=== PATIENT | male | born 1965 | race Caucasian/White ===

== ENCOUNTER 2016-09-13 11:53 | Inpatient (IN) | payer OTHER ==
[2016-09-13 14:07] VITALS: BMI 34.3
--- NOTE | 2016-09-13 17:49 | HP ---
COWS - Scale Resting Pulse: 0= [place] 80 or Below Sweatin= Chills/Flushing Restless Observation: 3= Extraneous Movement Pupil Size: 0= Normal to Room Light Bone or Joint Aches: 2= Severe Diffuse Aches Runny Nose/ Eye Tearin= Nasal Congestion GI Upset > 30mins: 2= Nausea/Diarrhea Tremor Observation: 2= Slight Tremor Visible Yawning Observation: 1= 1-2x During Session Anxiety or Irritability: 2=Irritable/Anxious Goose Flesh Skin: 3=Piloerection COWS Score: 17 Admission ROS S - [facility] Chief Complaint: withdrawal sx Allergies/Adverse Reactions: Allergies Allergy/AdvReac Type Severity Reaction Status Date / Time No Known Allergies Allergy Verified 09/13/16 15:33 History of Present Illness: 51 years old male with long history of opiate nicotine dependence, has hypertension hepatitis c constipation denies mental illness, longest sobriety 5 years is admitted to detox Exam Limitations: No Limitations - Ebola screening Have you traveled outside of the country in the last 21 days: No Have you had contact with anyone from an Ebola affected area: No Have you been sick,other than usual withdrawal symptoms: No Do you have a fever: No - Review of Systems Constitutional: Chills, Changes in sleep, Weight Stable EENT: reports: No Symptoms Reported Respiratory: reports: No Symptoms reported Cardiac: reports: No Symptoms Reported GI: reports: Constipated, Nausea, Poor Fluid Intake, Abdominal cramping : reports: No Symptoms Reported Musculoskeletal: reports: Back Pain, Joint Pain, Muscle Pain, Neck Pain Integumentary: reports: No Symptoms Reported Neuro: reports: Tremors Endocrine: reports: No Symptoms Reported Hematology: reports: No Symptoms Reported Psychiatric: reports: Judgement Intact, Mood/Affect Appropiate, Orientated x3 Other Systems: Reviewed and Negative Patient History - Patient Medical History Hx Anemia: No Hx Asthma: No Hx Chronic Obstructive Pulmonary Disease (COPD): No Hx Cancer: No Hx Cardiac Disorders: No Hx Congestive Heart Failure: No Hx Hypertension: Yes Hx Hypercholesterolemia: No Hx Pacemaker: No HX Cerebrovascular Accident: No Hx Seizures: No Hx Dementia: No Hx Diabetes: No Hx Gastrointestinal Disorders: No Hx Liver Disease: No Hx Genitourinary Disorders: No Hx Sexually Transmitted Disorders: No Hx Renal Disease (ESRD): No Hx Thyroid Disease: No Hx Human Immunodeficiency Virus (HIV): No Hx Hepatitis C: Yes Hx Depression: No Hx Suicide Attempt: No Hx Bipolar Disorder: No Hx Schizophrenia: No - Patient Surgical History Past Surgical History: Yes Hx Neurologic Surgery: No Hx Cataract Extraction: No Hx Cardiac Surgery: No Hx Lung Surgery: No Hx Breast Surgery: No Hx Breast Biopsy: No Hx Abdominal Surgery: No Hx Appendectomy: No Hx Cholecystectomy: No Hx Genitourinary Surgery: No Hx Orthopedic Surgery: Yes (left hip/right arm 1984) Anesthesia Reaction: No - PPD History Previous Implant?: Yes Documented Results: Negative w/proof Implanted On Prior R Admission?: Yes Date: 07/15/16 PPD to be Administered?: No - Smoking Cessation Smoking history: Current every day smoker Have you smoked in the past 12 months: Yes Aproximately how many cigarettes per day: 5 Cigars Per Day: 0 Hx Chewing Tobacco Use: No Initiated information on smoking cessation: Yes 'Breaking Loose' booklet given: 09/13/16 - Substance & Tx. History Hx Alcohol Use: No Hx Substance Use: Yes Substance Use Type: Cocaine, Marijuana, Opiates Hx Substance Use Treatment: Yes - Substances Abused Cocaine Route: Inhalation Frequency: 1-2 times per week Amount used: $40 Age of first use: 19 Date of Last Use: 09/13/16 Heroin Route: Inhalation Frequency: Daily Amount used: $90 Age of first use: 25 Date of Last Use: 09/13/16 none Amount used: 1/2 pint Vodka Age of first use: 9 Date of Last Use: 09/13/16 Alcohol Route: Inhalation Amount used: 1/2 pint Vodka Age of first use: 9 Date of Last Use: 09/13/16 Family Disease History - Family Disease History Family Disease History: Diabetes: Mother (), CA: Father (), Other: Father Admission Physical Exam BHS - Vital Signs Vital Signs: Vital Signs - 24 hr 09/13/16 14:06 Temperature 97.5 F L Pulse Rate 72 Respiratory 18 Rate Blood Pressure 139/85 - Physical General Appearance: Yes: Appropriately Dressed, Mild Distress, Tremorous, Irritable, Sweating, Anxious HEENTM: Yes: Hearing grossly Normal, Normal ENT Inspection, Normocephalic, Normal Voice Respiratory: Yes: Chest Non-Tender, Lungs Clear, Normal Breath Sounds, No Respiratory Distress, No Accessory Muscle Use Neck: Yes: Supple, Trachea in good position Breast: Yes: Breasts Symetrical Cardiology: Yes: Regular Rhythm, Regular Rate, S1, S2 Abdominal: Yes: Non Tender, Soft Genitourinary: Yes: Within Normal Limits Back: Yes: Normal Inspection Musculoskeletal: Yes: full range of Motion, Gait Steady, Back pain, Muscle Pain Extremities: Yes: Normal Range of Motion, Non-Tender, Tremors Neurological: Yes: Fully Oriented, Alert, Motor Strength 5/5, Normal Mood/Affect , Normal Response Integumentary: Yes: Warm Lymphatic: Yes: Within Normal Limits - Diagnostic (1) Nicotine dependence Current Visit: Yes Status: Acute Qualifiers: Nicotine product type: cigarettes Substance use status: uncomplicated Qualified Code(s): F17.210 - Nicotine dependence, cigarettes, uncomplicated (2) Opioid dependence with withdrawal Current Visit: Yes Status: Acute (3) Hepatitis C Current Visit: Yes Status: Chronic Qualifiers: Viral hepatitis chronicity: chronic Hepatic coma status: without hepatic coma Qualified Code(s): B18.2 - Chronic viral hepatitis C (4) Hypertension Current Visit: Yes Status: Acute Qualifiers: Hypertension type: essential hypertension Qualified Code(s): I10 - Essential (primary) hypertension (5) Constipation Current Visit: Yes Status: Acute Qualifiers: Constipation type: slow transit constipation Qualified Code(s): K59.01 - Slow transit constipation (6) Fracture subluxation of perilunate joint of right wrist Current Visit: Yes Status: Resolved (7) S/p left hip fracture Current Visit: Yes Status: Resolved Cleared for Admission [facility] - Detox or Rehab [facility] Level of Care: Medically Managed Detox Regimen/Protocol: Methadone [facility] Breath Alcohol Content Breath Alcohol Content: 0 Urine Drug Screen - Results Drug Screen Negative: No Urine Drug Screen Results: THC-Marijuana, AGUSTIN-Cocaine, OPI-Opiates, BZO- Benzodiazepines, TCA-Tricyclic Antidepress, OXY-Oxycodone
[2016-09-13] MEDS ORDERED: MENTHOL/PHENOL 1 EACH UD MM PRN (17:51)
[2016-09-13] MEDS ORDERED: MAGNESIUM CITRATE 300 ML BOTTLE PO PRN (17:51)
[2016-09-13] MEDS ORDERED: LOPERAMIDE HCL 2 MG CAPSULE PO PRN (17:51)
[2016-09-13] MEDS ORDERED: ACETAMINOPHEN 325 MG TABLET (FP) PO PRN (17:51)
[2016-09-13] MEDS ORDERED: MAG HYDROX/AL HYDROX/SIMETH 30 ML UNIT-DOSE CUP PO PRN (17:51)
[2016-09-13] MEDS ORDERED: guaiFENesin/D-METHORPHAN HB 10 ML UNIT-DOSE CUPS PO PRN (17:51)
[2016-09-13] MEDS ORDERED: P-EPHED 60MG/TRIPROLIDI 2.5MG TABLET PO PRN (17:51)
[2016-09-13] MEDS ORDERED: NICOTINE POLACRILEX 2 MG GUM BC PRN (17:51)
[2016-09-13] MEDS ORDERED: cloNIDine HCL 0.1 MG TABLET PO PRN (17:57)
[2016-09-13] MEDS ORDERED: SENNOSIDES 8.6MG TABLET (FP) PO PRN (17:58)
[2016-09-13] MEDS ORDERED: METHADONE HCL 10 MG TABLET (FOR DETOX USE ONLY) PO ONE ×2 (18:00→23:00)
[2016-09-13] MEDS: diazePAM 5 MG TABLET PO PRN ×2 (18:15→22:08)
[2016-09-13] MEDS: THIAMINE HCL 100 MG TABLET (FP) PO SCH (22:05)
[2016-09-13] MEDS ORDERED: diphenhydrAMINE HCL 25 MG CAPSULE (FP) PO ONE (22:07)
[2016-09-13] MEDS: diphenhydrAMINE HCL 50 MG CAPSULE PO PRN (22:08)
[2016-09-13 23:03] LABS: URINE APPEARANCE CLEAR; URINE BILIRUBIN NEGATIVE (NEGATIVE); URINE BLOOD NEGATIVE (NEGATIVE); URINE COLOR AMBER; URINE GLUCOSE (UA) NEGATIVE (NEGATIVE); URINE KETONE TRACE (NEGATIVE); URINE LEUK ESTERASE NEGATIVE (NEGATIVE); URINE NITRITE NEGATIVE (NEGATIVE); URINE PROTEIN NEGATIVE (NEGATIVE); URINE UROBILINOGEN 2.0 E.U/dl E.U./dl (0.2-1.0)
[2016-09-14] MEDS: diazePAM 5 MG TABLET PO PRN ×4 (05:27→22:03)
[2016-09-14] MEDS ORDERED: METHADONE HCL 10 MG TABLET (FOR DETOX USE ONLY) PO ONE (10:00)
[2016-09-14] MEDS: LISINOPRIL 10 MG TABLET (FP) PO SCH (10:08)
[2016-09-14] MEDS: NICOTINE 14 MG/24 HOURS TOPICAL PATCH TD SCH (10:08)
[2016-09-14] MEDS: PRENATAL VITAMINS W/ FOLIC ACID TABLET (FP) PO SCH (10:08)
[2016-09-14 10:25] LABS: WHITE BLOOD COUNT 10.1 K/mm3 (4.0-10.0)
[2016-09-14 10:26] LABS: MCH 31.8 pg (25.7-33.7); MCHC 33.7 g/dl (32.0-35.9); MEAN CELL VOLUME 94.4 fl (80-96); MEAN PLT VOLUME 8.8 fl (7.5-11.1); PLATELET COUNT 276 K/MM3 (134-434); RDW 14.6 % (11.9-15.9)
--- NOTE | 2016-09-14 10:36 | PN ---
[facility] CIWA - CIWA Score Nausea/Vomitin-No Nausea/No Vomiting Muscle Tremors: 4-Moderate,w/Arms Extend Anxiety: 4-Mod. Anxious/Guarded Agitation: 4-Moderately Restless Paroxysmal Sweats: 1-Minimal Palms Moist Orientation: 0-Oriented Tacttile Disturbances: 3-Moderate Itch/Numb/Burn Auditory Disturbances: 0-None Visual Disturbances: 0-None Headache: 0-None Present CIWA-Ar Total Score: 16 S Progress Note (SOAP) Subjective: ANXIETY,TREMORS,SWEATS, INTERMITTENT SLEEP. Objective: 09/14/16 10:51 Vital Signs Temperature 98.8 F 09/14/16 09:47 Pulse Rate 59 L 09/14/16 09:47 Respiratory Rate 18 09/14/16 09:47 Blood Pressure 133/82 09/14/16 09:47 O2 Sat by Pulse Oximetry (%) Laboratory Last Values WBC 10.1 K/mm3 (4.0-10.0) H 09/14/16 06:00 RBC 4.28 M/mm3 (4.00-5.60) 09/14/16 06:00 Hgb 13.6 GM/dL (11.7-16.9) 09/14/16 06:00 Hct 40.4 % (35.4-49) 09/14/16 06:00 MCV 94.4 fl (80-96) 09/14/16 06:00 MCHC 33.7 g/dl (32.0-35.9) 09/14/16 06:00 RDW 14.6 % (11.9-15.9) 09/14/16 06:00 Plt Count 276 K/MM3 (134-434) 09/14/16 06:00 MPV 8.8 fl (7.5-11.1) 09/14/16 06:00 Sodium 138 mmol/L (136-145) 09/14/16 06:00 Potassium 4.4 mmol/L (3.5-5.1) 09/14/16 06:00 Chloride 103 mmol/L (98-107) 09/14/16 06:00 Urine Color B[place] 09/13/16 22:40 Urine Appearance Clear 09/13/16 22:40 Urine pH 5.0 (5.0-8.0) 09/13/16 22:40 Ur Specific [place] 1.028 (1.001-1.035) 09/13/16 22:40 Urine Protein Negative (NEGATIVE) 09/13/16 22:40 Urine Glucose (UA) Negative (NEGATIVE) 09/13/16 22:40 Urine Ketones Trace (NEGATIVE) H 09/13/16 22:40 Urine Blood Negative (NEGATIVE) 09/13/16 22:40 Urine Nitrite Negative (NEGATIVE) 09/13/16 22:40 Urine Bilirubin Negative (NEGATIVE) 09/13/16 22:40 Urine Urobilinogen 2.0 e.u/dl E.U./dl (0.2-1.0) 09/13/16 22:40 Ur Leukocyte Esterase Negative (NEGATIVE) 09/13/16 22:40 Assessment: 09/14/16 10:52 WITHDRAWAL SX Plan: CONTINUE DETOX
[2016-09-14 11:01] LABS: ALBUMIN 3.8 g/dl (3.4-5.0); ALK PHOS 65 U/L (45-117); ANION GAP 8 (8-16); BILIRUBIN,TOTAL 0.4 mg/dL (0.2-1.0); CALCIUM 9.3 mg/dL (8.5-10.1); CO2 27 mmol/L (21-32); GLUCOSE,RANDOM 96 mg/dL (74-106); SGOT/AST 48 U/L (15-37); SGPT/ALT 62 U/L (12-78); TOT PROT 7.6 g/dl (6.4-8.2)
--- NOTE | 2016-09-14 12:37 | EKG ---
Test Reason : Blood Pressure : / mmHG Vent. Rate : 060 BPM Atrial Rate : 060 BPM P-R Int : 156 ms QRS Dur : 078 ms QT Int : 402 ms P-R-T Axes : -08 074 040 degrees QTc Int : 402 ms NORMAL SINUS RHYTHM NONSPECIFIC T WAVE ABNORMALITY NO PREVIOUS ECGS AVAILABLE Confirmed by GRACIE MORLEY MD ([id number]) on 09/14/2016 12:37:14 PM Referred By: Confirmed By:GRACIE MORLEY MD
[2016-09-14] MEDS: THIAMINE HCL 100 MG TABLET (FP) PO SCH (22:03)
[2016-09-14] MEDS: diphenhydrAMINE HCL 50 MG CAPSULE PO PRN (22:04)
[2016-09-15] MEDS: diazePAM 5 MG TABLET PO PRN ×3 (05:55→22:08)
[2016-09-15] MEDS ORDERED: METHADONE HCL 5 MG TABLET (FOR DETOX USE ONLY) PO ONE (10:00)
[2016-09-15] MEDS: PRENATAL VITAMINS W/ FOLIC ACID TABLET (FP) PO SCH (10:04)
[2016-09-15] MEDS: LISINOPRIL 10 MG TABLET (FP) PO SCH (10:04)
[2016-09-15] MEDS: NICOTINE 14 MG/24 HOURS TOPICAL PATCH TD SCH (10:05)
--- NOTE | 2016-09-15 15:47 | PN ---
S COWS - Scale Resting Pulse: 0= [place] 80 or Below Sweatin= Chills/Flushing Restless Observation: 1= Difficult to Sit Still Pupil Size: 2= Moderately Dilated Bone or Joint Aches: 1= Mild Discomfort Runny Nose/ Eye Tearin= Runny Nose/Eyes GI Upset > 30mins: 1= Stomach Cramp Tremor Observation of Outstretched Hands: 2= Slight Tremor Visible Yawning Observation: 0= None Anxiety or Irritability: 2=Irritable/Anxious Goose Flesh Skin: 0=Smooth Skin COWS Score: 12 [facility] Progress Note (SOAP) Objective: 09/15/16 15:46 Laboratory Tests 09/13/16 09/14/16 09/14/16 22:40 06:00 06:00 WBC 10.1 H RBC 4.28 Hgb 13.6 Hct 40.4 MCV 94.4 MCHC 33.7 RDW 14.6 Plt Count 276 MPV 8.8 Sodium 138 Potassium 4.4 Chloride 103 Carbon Dioxide 27 Anion Gap 8 BUN 14 D Creatinine 1.0 Creat Clearance w eGFR > 60 Random Glucose 96 Calcium 9.3 Total Bilirubin 0.4 D AST 48 H ALT 62 Alkaline Phosphatase 65 D Total Protein 7.6 Albumin 3.8 Urine Color Batsheva Urine Appearance Clear Urine pH 5.0 Ur Specific [place] 1.028 Urine Protein Negative Urine Glucose (UA) Negative Urine Ketones Trace H Urine Blood Negative Urine Nitrite Negative Urine Bilirubin Negative Urine Urobilinogen 2.0 e.u/dl Ur Leukocyte Esterase Negative RPR Titer 09/14/16 06:00 WBC RBC Hgb Hct MCV MCHC RDW Plt Count MPV Sodium Potassium Chloride Carbon Dioxide Anion Gap BUN Creatinine Creat Clearance w eGFR Random Glucose Calcium Total Bilirubin AST ALT Alkaline Phosphatase Total Protein Albumin Urine Color Urine Appearance Urine pH Ur Specific [place] Urine Protein Urine Glucose (UA) Urine Ketones Urine Blood Urine Nitrite Urine Bilirubin Urine Urobilinogen Ur Leukocyte Esterase RPR Titer Nonreactive Vital Signs - 24 hr 09/14/16 09/14/16 09/15/16 17:43 22:10 00:27 Temperature 97.2 F L 97.8 F Pulse Rate 53 L 56 L Respiratory 18 18 18 Rate Blood Pressure 108/60 126/79 09/15/16 09/15/16 09/15/16 03:30 06:34 09:37 Temperature 97.5 F L 97.1 F L Pulse Rate 52 L 52 L 59 L Respiratory 18 18 18 Rate Blood Pressure 140/94 162/93 09/15/16 14:10 Temperature 98.0 F Pulse Rate 56 L Respiratory 20 Rate Blood Pressure 143/88 Assessment: 09/15/16 15:47 ongoing withdrawal Plan: continue detox protocol
[2016-09-15] MEDS: MAGNESIUM HYDROX 2400MG/30ML ORAL SUSPENSION 30 ML CUP PO PRN (19:20)
[2016-09-15] MEDS: THIAMINE HCL 100 MG TABLET (FP) PO SCH (22:08)
[2016-09-15] MEDS: diphenhydrAMINE HCL 50 MG CAPSULE PO PRN (22:08)
[2016-09-16] MEDS: diazePAM 5 MG TABLET PO PRN ×2 (05:38→10:05)
[2016-09-16] MEDS ORDERED: METHADONE HCL 5 MG TABLET (FOR DETOX USE ONLY) PO ONE (10:00)
[2016-09-16] MEDS: PRENATAL VITAMINS W/ FOLIC ACID TABLET (FP) PO SCH (10:05)
[2016-09-16] MEDS: NICOTINE 14 MG/24 HOURS TOPICAL PATCH TD SCH (10:05)
[2016-09-16] MEDS: LISINOPRIL 10 MG TABLET (FP) PO SCH (10:51)
[2016-09-16] MEDS: IBUPROFEN 400 MG TABLET (FP) PO PRN (11:47)
--- NOTE | 2016-09-16 15:30 | PN ---
[facility] Progress Note (SOAP) Subjective: Sweating, anxious, restless, interrupted sleep (wants ambien; benadryl ineffective), nausea Objective: 09/16/16 15:25 Last Vital Signs Temp Pulse Resp BP Pulse Ox 96.5 F L 72 20 141/86 09/16/16 13:41 09/16/16 13:41 09/16/16 13:41 09/16/16 13:41 Laboratory Tests 09/13/16 09/14/16 09/14/16 22:40 06:00 06:00 WBC 10.1 H RBC 4.28 Hgb 13.6 Hct 40.4 MCV 94.4 MCHC 33.7 RDW 14.6 Plt Count 276 MPV 8.8 Sodium 138 Potassium 4.4 Chloride 103 Carbon Dioxide 27 Anion Gap 8 BUN 14 D Creatinine 1.0 Creat Clearance w eGFR > 60 Random Glucose 96 Calcium 9.3 Total Bilirubin 0.4 D AST 48 H ALT 62 Alkaline Phosphatase 65 D Total Protein 7.6 Albumin 3.8 Urine Color B[place]va Urine Appearance Clear Urine pH 5.0 Ur Specific [place] 1.028 Urine Protein Negative Urine Glucose (UA) Negative Urine Ketones Trace H Urine Blood Negative Urine Nitrite Negative Urine Bilirubin Negative Urine Urobilinogen 2.0 e.u/dl Ur Leukocyte Esterase Negative RPR Titer 09/14/16 06:00 WBC RBC Hgb Hct MCV MCHC RDW Plt Count MPV Sodium Potassium Chloride Carbon Dioxide Anion Gap BUN Creatinine Creat Clearance w eGFR Random Glucose Calcium Total Bilirubin AST ALT Alkaline Phosphatase Total Protein Albumin Urine Color Urine Appearance Urine pH Ur Specific [place] Urine Protein Urine Glucose (UA) Urine Ketones Urine Blood Urine Nitrite Urine Bilirubin Urine Urobilinogen Ur Leukocyte Esterase RPR Titer Nonreactive Labs noted Assessment: 09/16/16 15:30 Withdrawal symptoms Plan: Continue detox Ambien 10mg PO qhs prn ordered for interrupted sleep
[2016-09-16] MEDS ORDERED: ALBUTEROL SO4 6.7 GM HFA INHALER IH PRN (19:44)
[2016-09-16] MEDS ORDERED: ALBUTEROL SO4 2.5/IPRATROPIUM 0.5 INH SOL 3 ML VIAL.NEB. NEB PRN (19:45)
[2016-09-16] MEDS: ZOLPIDEM TARTRATE 5 MG TABLET PO PRN (22:08)
[2016-09-16] MEDS: THIAMINE HCL 100 MG TABLET (FP) PO SCH (22:08)
[2016-09-17] MEDS: diphenhydrAMINE HCL 50 MG CAPSULE PO PRN (01:40)
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
[2016-09-17] MEDS ORDERED: hydrOXYzine PAMOATE 50 MG CAPSULE (FP) PO PRN (06:53)
[2016-09-17] MEDS ORDERED: METHADONE HCL 10 MG TABLET (FOR DETOX USE ONLY) PO ONE (10:00)
[2016-09-17] MEDS: NICOTINE 14 MG/24 HOURS TOPICAL PATCH TD SCH (10:08)
[2016-09-17] MEDS: LISINOPRIL 10 MG TABLET (FP) PO SCH (10:08)
[2016-09-17] MEDS: PRENATAL VITAMINS W/ FOLIC ACID TABLET (FP) PO SCH (10:08)
[2016-09-17] MEDS: BACITRACIN 30 GM TUBE TOPICAL OINTMENT TP SCH (10:09)
[2016-09-17] MEDS: MAGNESIUM HYDROX 2400MG/30ML ORAL SUSPENSION 30 ML CUP PO PRN (10:10)
[2016-09-17] MEDS: IBUPROFEN 400 MG TABLET (FP) PO PRN (13:05)
--- NOTE | 2016-09-17 13:46 | PN ---
[facility] Progress Note (SOAP) Subjective: SWEATING,INTERRUPTED SLEEP,RESTLESS Objective: 09/17/16 13:45 Vital Signs - 8 hr 09/17/16 09/17/16 06:42 10:29 Temperature 97.8 F 97 F L Pulse Rate 52 L 64 Respiratory 18 19 Rate Blood Pressure 146/90 150/95 Laboratory Tests 09/13/16 09/14/16 09/14/16 22:40 06:00 06:00 WBC 10.1 H RBC 4.28 Hgb 13.6 Hct 40.4 MCV 94.4 MCHC 33.7 RDW 14.6 Plt Count 276 MPV 8.8 Sodium 138 Potassium 4.4 Chloride 103 Carbon Dioxide 27 Anion Gap 8 BUN 14 D Creatinine 1.0 Creat Clearance w eGFR > 60 Random Glucose 96 Calcium 9.3 Total Bilirubin 0.4 D AST 48 H ALT 62 Alkaline Phosphatase 65 D Total Protein 7.6 Albumin 3.8 Urine Color Batsheva Urine Appearance Clear Urine pH 5.0 Ur Specific [place] 1.028 Urine Protein Negative Urine Glucose (UA) Negative Urine Ketones Trace H Urine Blood Negative Urine Nitrite Negative Urine Bilirubin Negative Urine Urobilinogen 2.0 e.u/dl Ur Leukocyte Esterase Negative RPR Titer 09/14/16 06:00 WBC RBC Hgb Hct MCV MCHC RDW Plt Count MPV Sodium Potassium Chloride Carbon Dioxide Anion Gap BUN Creatinine Creat Clearance w eGFR Random Glucose Calcium Total Bilirubin AST ALT Alkaline Phosphatase Total Protein Albumin Urine Color Urine Appearance Urine pH Ur Specific [place] Urine Protein Urine Glucose (UA) Urine Ketones Urine Blood Urine Nitrite Urine Bilirubin Urine Urobilinogen Ur Leukocyte Esterase RPR Titer Nonreactive LABS NOTED Assessment: 09/17/16 13:45 WITHDRAWAL SX Plan: CONTINUE DETOX
[2016-09-17] MEDS: ZOLPIDEM TARTRATE 5 MG TABLET PO PRN (22:04)
[2016-09-17] MEDS: THIAMINE HCL 100 MG TABLET (FP) PO SCH (22:04)
[2016-09-18] MEDS ORDERED: METHADONE HCL 5 MG TABLET (FOR DETOX USE ONLY) PO ONE (06:00)
[2016-09-18 06:24] VITALS: BP 143/91; PULSE 50; TEMP 96.6
[2016-09-18] MEDS: LISINOPRIL 10 MG TABLET (FP) PO SCH (09:18)
[2016-09-18] MEDS: NICOTINE 14 MG/24 HOURS TOPICAL PATCH TD SCH (09:18)
[2016-09-18] MEDS: BACITRACIN 30 GM TUBE TOPICAL OINTMENT TP SCH (09:19)
[2016-09-18] MEDS: PRENATAL VITAMINS W/ FOLIC ACID TABLET (FP) PO SCH (09:19)
--- NOTE | 2016-09-18 10:50 | DS ---
[facility] Detox Discharge Summary Admission Date: 09/13/16 Discharge Date: 09/18/16 - History Present History: Cocaine Dependence, Opioid Dependence Additional Comments: DETOX COMPLETED. PT INSTRUCTED TO F/U WITH HIS PMD FOR MEDICAL MANAGEMENT. Pertinent Past History: HTN HEP C - Physical Exam Results Vital Signs: Vital Signs Temperature 96.6 F L 09/18/16 06:23 Pulse Rate 50 L 09/18/16 06:23 Respiratory Rate 18 09/18/16 06:23 Blood Pressure 143/91 09/18/16 06:23 O2 Sat by Pulse Oximetry (%) Pertinent Admission Physical Exam Findings: WITHDRAWAL SX - Treatment Hospital Course: Detox Protocol Followed, Detoxed Safely, Responded well, Discharged Condition Good - Medication Discharge Medications: Ambulatory Orders Lisinopril [Prinivil] 10 mg PO DAILY #30 tablet 07/18/16 Cyclobenzaprine HCl [Flexeril -] 10 tab PO PRN 09/13/16 - Diagnosis (1) Cocaine dependence Status: Acute Qualifiers: Substance use status: uncomplicated Qualified Code(s): F14.20 - Cocaine dependence, uncomplicated (2) Hypertension Status: Chronic Qualifiers: Hypertension type: essential hypertension Qualified Code(s): I10 - Essential (primary) hypertension (3) Nicotine dependence Status: Chronic Qualifiers: Nicotine product type: cigarettes Substance use status: uncomplicated Qualified Code(s): F17.210 - Nicotine dependence, cigarettes, uncomplicated (4) Opioid dependence with withdrawal Status: Acute (5) Hepatitis C Status: Chronic Qualifiers: Viral hepatitis chronicity: chronic Hepatic coma status: without hepatic coma Qualified Code(s): B18.2 - Chronic viral hepatitis C - AMA Did Patient Leave Against Medical Advice: No
== END 2016-09-18 09:22 | disposition home or self-care (01) | DRG 773 ==
LOC: YASAS 11:53 → Y3N 17:36
PROVIDERS: ADMIT Internal Medicine; ATTEND Internal Medicine
PROC: HZ2ZZZZ Detoxification Services for Substance Abuse Treatment (ICD-10-PCS; principal; 2016-09-13)
DX: F11.23 Opioid dependence with withdrawal (principal); F14.20 Cocaine dependence, uncomplicated; F17.210 Nicotine dependence, cigarettes, uncomplicated; I10 Essential (primary) hypertension; B18.2 Chronic viral hepatitis C; K59.01 Slow transit constipation; Z87.81 Personal history of (healed) traumatic fracture; S00.211A Abrasion of right eyelid and periocular area, initial encounter; S00.81XA Abrasion of other part of head, initial encounter; Y04.0XXA Assault by unarmed brawl or fight, initial encounter; Y93.89 Activity, other specified; Y92.239 Unspecified place in hospital as the place of occurrence of the external cause
CPT/HCPCS: 36415; 80053; 81003; 85027; 86593; 93005; 93010

== ENCOUNTER 2016-11-05 12:09 | Inpatient (IN) | payer OTHER ==
[2016-11-05 13:44] VITALS: BMI 32.2
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
[2016-11-05] MEDS ORDERED: IBUPROFEN 400 MG TABLET (FP) PO PRN (15:30)
[2016-11-05] MEDS ORDERED: guaiFENesin/D-METHORPHAN HB 10 ML UNIT-DOSE CUPS PO PRN (15:30)
[2016-11-05] MEDS ORDERED: MAGNESIUM HYDROX 2400MG/30ML ORAL SUSPENSION 30 ML CUP PO PRN (15:30)
[2016-11-05] MEDS ORDERED: MAG HYDROX/AL HYDROX/SIMETH 30 ML UNIT-DOSE CUP PO PRN (15:30)
[2016-11-05] MEDS ORDERED: hydrOXYzine PAMOATE 25 MG CAPSULE (FP) PO PRN (15:30)
[2016-11-05] MEDS ORDERED: MAGNESIUM CITRATE 300 ML BOTTLE PO PRN (15:30)
[2016-11-05] MEDS ORDERED: MENTHOL/PHENOL 1 EACH UD MM PRN (15:30)
[2016-11-05] MEDS ORDERED: LOPERAMIDE HCL 2 MG CAPSULE PO PRN (15:30)
[2016-11-05] MEDS ORDERED: P-EPHED 60MG/TRIPROLIDI 2.5MG TABLET PO PRN (15:30)
[2016-11-05] MEDS ORDERED: NICOTINE POLACRILEX 4 MG GUM BUC PRN (15:30)
[2016-11-05] MEDS ORDERED: ACETAMINOPHEN 325 MG TABLET (FP) PO PRN (15:30)
[2016-11-05] MEDS ORDERED: METHADONE HCL 10 MG TABLET (FOR DETOX USE ONLY) PO ONE ×2 (15:41→23:00)
[2016-11-05] MEDS ORDERED: METHADONE HCL 10 MG TABLET (FOR DETOX USE ONLY) ONE (17:51)
[2016-11-05] MEDS: diazePAM 5 MG TABLET PO PRN (17:52)
[2016-11-05] MEDS: THIAMINE HCL 100 MG TABLET (FP) PO SCH (22:35)
[2016-11-05] MEDS: diphenhydrAMINE HCL 50 MG CAPSULE PO PRN (22:35)
[2016-11-05 23:05] LABS: URINE APPEARANCE CLEAR; URINE BILIRUBIN NEGATIVE (NEGATIVE); URINE BLOOD NEGATIVE (NEGATIVE); URINE COLOR YELLOW; URINE GLUCOSE (UA) NEGATIVE (NEGATIVE); URINE KETONE NEGATIVE (NEGATIVE); URINE LEUK ESTERASE NEGATIVE (NEGATIVE); URINE NITRITE NEGATIVE (NEGATIVE); URINE PROTEIN NEGATIVE (NEGATIVE); URINE UROBILINOGEN 2.0 E.U/dl E.U./dl (0.2-1.0)
[2016-11-06] MEDS: diazePAM 5 MG TABLET PO PRN ×2 (05:19→22:30)
[2016-11-06] MEDS ORDERED: METHADONE HCL 10 MG TABLET (FOR DETOX USE ONLY) PO ONE (10:00)
[2016-11-06] MEDS: PRENATAL VITAMINS W/ FOLIC ACID TABLET (FP) PO SCH (10:24)
[2016-11-06] MEDS: LISINOPRIL 10 MG TABLET (FP) PO SCH (10:24)
[2016-11-06 10:36] LABS: MCH 31.6 pg (25.7-33.7); MCHC 33.6 g/dl (32.0-35.9); MEAN CELL VOLUME 94.1 fl (80-96); MEAN PLT VOLUME 8.6 fl (7.5-11.1); PLATELET COUNT 263 K/MM3 (134-434); RDW 13.9 % (11.9-15.9)
--- NOTE | 2016-11-06 10:43 | PN ---
[facility] COWS - Scale Resting Pulse: 0= [place] 80 or Below Sweatin= Chills/Flushing Restless Observation: 3= Extraneous Movement Pupil Size: 2= Moderately Dilated Bone or Joint Aches: 4=Acute Joint/Muscle Pain Runny Nose/ Eye Tearin= Nasal Congestion GI Upset > 30mins: 1= Stomach Cramp Tremor Observation of Outstretched Hands: 1= Tremor [place], Not Seen Yawning Observation: 1= 1-2x During Session Anxiety or Irritability: 1=Feels Anxious/Irritable Goose Flesh Skin: 0=Smooth Skin COWS Score: 15 [facility] Progress Note (SOAP) Subjective: ANXIETY,SWEATS,INTERMITTENT SLEEP. Objective: 11/06/16 10:42 Vital Signs Temperature 95.5 F L 11/06/16 10:10 Pulse Rate 59 L 11/06/16 10:10 Respiratory Rate 18 11/06/16 10:10 Blood Pressure 149/92 11/06/16 10:10 O2 Sat by Pulse Oximetry (%) Laboratory Last Values Urine Color Yellow 11/05/16 22:50 Urine Appearance Clear 11/05/16 22:50 Urine pH 6.0 (5.0-8.0) 11/05/16 22:50 Ur Specific [place] 1.023 (1.001-1.035) 11/05/16 22:50 Urine Protein Negative (NEGATIVE) 11/05/16 22:50 Urine Glucose (UA) Negative (NEGATIVE) 11/05/16 22:50 Urine Ketones Negative (NEGATIVE) 11/05/16 22:50 Urine Blood Negative (NEGATIVE) 11/05/16 22:50 Urine Nitrite Negative (NEGATIVE) 11/05/16 22:50 Urine Bilirubin Negative (NEGATIVE) 11/05/16 22:50 Urine Urobilinogen 2.0 e.u/dl E.U./dl (0.2-1.0) 11/05/16 22:50 Ur Leukocyte Esterase Negative (NEGATIVE) 11/05/16 22:50 Assessment: 11/06/16 10:43 WITHDRAWAL SX Plan: CONTINUE DETOX
[2016-11-06 10:44] LABS: ALBUMIN 4.1 g/dl (3.4-5.0); ALK PHOS 59 U/L (45-117); ANION GAP 3 (8-16); BILIRUBIN,TOTAL 0.5 mg/dL (0.2-1.0); CALCIUM 9.3 mg/dL (8.5-10.1); CO2 35 mmol/L (21-32); GLUCOSE,RANDOM 98 mg/dL (74-106); SGOT/AST 51 U/L (15-37); SGPT/ALT 64 U/L (12-78); TOT PROT 8.1 g/dl (6.4-8.2)
--- NOTE | 2016-11-06 11:07 | EKG ---
Test Reason : Blood Pressure : / mmHG Vent. Rate : 060 BPM Atrial Rate : 060 BPM P-R Int : 168 ms QRS Dur : 082 ms QT Int : 430 ms P-R-T Axes : -06 070 059 degrees QTc Int : 430 ms NORMAL SINUS RHYTHM NORMAL ECG WHEN COMPARED WITH ECG OF 13-SEP-2016 18:23, NO SIGNIFICANT CHANGE WAS FOUND Confirmed by ANNIA WOO MD ([id number]) on 11/06/2016 11:07:17 AM Referred By: Johnny Perez Confirmed By:ANNIA WOO MD
[2016-11-06] MEDS: THIAMINE HCL 100 MG TABLET (FP) PO SCH (22:29)
[2016-11-06] MEDS: diphenhydrAMINE HCL 50 MG CAPSULE PO PRN (22:29)
[2016-11-07] MEDS: diazePAM 5 MG TABLET PO PRN ×3 (05:51→22:31)
[2016-11-07] MEDS ORDERED: METHADONE HCL 5 MG TABLET (FOR DETOX USE ONLY) PO ONE (10:00)
[2016-11-07] MEDS: LISINOPRIL 10 MG TABLET (FP) PO SCH (10:25)
[2016-11-07] MEDS: PRENATAL VITAMINS W/ FOLIC ACID TABLET (FP) PO SCH (10:25)
[2016-11-07] MEDS: THIAMINE HCL 100 MG TABLET (FP) PO SCH (22:30)
[2016-11-07] MEDS: diphenhydrAMINE HCL 50 MG CAPSULE PO PRN (23:24)
[2016-11-08] MEDS: diazePAM 5 MG TABLET PO PRN (05:41)
[2016-11-08] MEDS ORDERED: METHADONE HCL 5 MG TABLET (FOR DETOX USE ONLY) PO ONE (10:00)
[2016-11-08] MEDS: PRENATAL VITAMINS W/ FOLIC ACID TABLET (FP) PO SCH (10:32)
[2016-11-08] MEDS: LISINOPRIL 10 MG TABLET (FP) PO SCH (10:32)
[2016-11-08] MEDS: NAPROXEN 500 MG TABLET (FP) PO PRN (10:34)
--- NOTE | 2016-11-08 11:04 | PN ---
S COWS - Scale Resting Pulse: 0= [place] 80 or Below Sweatin= Chills/Flushing Restless Observation: 3= Extraneous Movement Pupil Size: 2= Moderately Dilated Bone or Joint Aches: 4=Acute Joint/Muscle Pain Runny Nose/ Eye Tearin= Nasal Congestion GI Upset > 30mins: 1= Stomach Cramp Tremor Observation of Outstretched Hands: 1= Tremor [place], Not Seen Yawning Observation: 1= 1-2x During Session Anxiety or Irritability: 2=Irritable/Anxious Goose Flesh Skin: 0=Smooth Skin COWS Score: 16 S Progress Note (SOAP) Subjective: ANXIETY,SWEATS,TREMORS,LOWER BACK PAIN,INTERMITTENT SLEEP Objective: 11/08/16 11:02 Vital Signs Temperature 97.0 F L 11/08/16 09:49 Pulse Rate 55 L 11/08/16 09:49 Respiratory Rate 16 11/08/16 09:49 Blood Pressure 134/85 11/08/16 09:49 O2 Sat by Pulse Oximetry (%) Laboratory Last Values WBC 10.0 K/mm3 (4.0-10.0) 11/06/16 06:00 RBC 4.50 M/mm3 (4.00-5.60) 11/06/16 06:00 Hgb 14.2 GM/dL (11.7-16.9) 11/06/16 06:00 Hct 42.4 % (35.4-49) 11/06/16 06:00 MCV 94.1 fl (80-96) 11/06/16 06:00 MCHC 33.6 g/dl (32.0-35.9) 11/06/16 06:00 RDW 13.9 % (11.9-15.9) 11/06/16 06:00 Plt Count 263 K/MM3 (134-434) 11/06/16 06:00 MPV 8.6 fl (7.5-11.1) 11/06/16 06:00 Sodium 138 mmol/L (136-145) 11/06/16 06:00 Potassium 4.5 mmol/L (3.5-5.1) 11/06/16 06:00 Chloride 100 mmol/L (98-107) 11/06/16 06:00 Carbon Dioxide 35 mmol/L (21-32) H D 11/06/16 06:00 Anion Gap 3 (8-16) L 11/06/16 06:00 BUN 14 mg/dL (7-18) 11/06/16 06:00 Creatinine 1.0 mg/dL (0.7-1.3) 11/06/16 06:00 Creat Clearance w eGFR > 60 (>60) 11/06/16 06:00 Random Glucose 98 mg/dL (74-106) 11/06/16 06:00 Calcium 9.3 mg/dL (8.5-10.1) 11/06/16 06:00 Total Bilirubin 0.5 mg/dL (0.2-1.0) D 11/06/16 06:00 AST 51 U/L (15-37) H 11/06/16 06:00 ALT 64 U/L (12-78) 11/06/16 06:00 Alkaline Phosphatase 59 U/L (45-117) 11/06/16 06:00 Total Protein 8.1 g/dl (6.4-8.2) 11/06/16 06:00 Albumin 4.1 g/dl (3.4-5.0) 11/06/16 06:00 Urine Color Yellow 11/05/16 22:50 Urine Appearance Clear 11/05/16 22:50 Urine pH 6.0 (5.0-8.0) 11/05/16 22:50 Ur Specific [place] 1.023 (1.001-1.035) 11/05/16 22:50 Urine Protein Negative (NEGATIVE) 11/05/16 22:50 Urine Glucose (UA) Negative (NEGATIVE) 11/05/16 22:50 Urine Ketones Negative (NEGATIVE) 11/05/16 22:50 Urine Blood Negative (NEGATIVE) 11/05/16 22:50 Urine Nitrite Negative (NEGATIVE) 11/05/16 22:50 Urine Bilirubin Negative (NEGATIVE) 11/05/16 22:50 Urine Urobilinogen 2.0 e.u/dl E.U./dl (0.2-1.0) 11/05/16 22:50 Ur Leukocyte Esterase Negative (NEGATIVE) 11/05/16 22:50 RPR Titer Nonreactive (NONREACTIVE) 11/06/16 06:00 Assessment: 11/08/16 11:02 WITHDRAWAL SX Plan: CONTINUE DETOX
[2016-11-08] MEDS: THIAMINE HCL 100 MG TABLET (FP) PO SCH (22:28)
[2016-11-08] MEDS: diphenhydrAMINE HCL 50 MG CAPSULE PO PRN (22:28)
[2016-11-09] MEDS: LISINOPRIL 10 MG TABLET (FP) PO SCH (09:27)
[2016-11-09] MEDS: PRENATAL VITAMINS W/ FOLIC ACID TABLET (FP) PO SCH (09:27)
[2016-11-09] MEDS: NAPROXEN 500 MG TABLET (FP) PO PRN ×2 (09:27→22:48)
[2016-11-09] MEDS ORDERED: METHADONE HCL 10 MG TABLET (FOR DETOX USE ONLY) PO ONE (10:00)
--- NOTE | 2016-11-09 11:10 | PN ---
BHS Progress Note (SOAP) Subjective: Sweating,interrupted sleep,restless Objective: 11/09/16 11:07 Vital Signs - 8 hr 11/09/16 11/09/16 11/09/16 03:30 06:51 09:53 Temperature 96.8 F L 96.3 F L Pulse Rate 55 L 54 L Respiratory 18 18 20 Rate Blood Pressure 124/84 127/84 Laboratory Last Values WBC 10.0 K/mm3 (4.0-10.0) 11/06/16 06:00 RBC 4.50 M/mm3 (4.00-5.60) 11/06/16 06:00 Hgb 14.2 GM/dL (11.7-16.9) 11/06/16 06:00 Hct 42.4 % (35.4-49) 11/06/16 06:00 MCV 94.1 fl (80-96) 11/06/16 06:00 MCHC 33.6 g/dl (32.0-35.9) 11/06/16 06:00 RDW 13.9 % (11.9-15.9) 11/06/16 06:00 Plt Count 263 K/MM3 (134-434) 11/06/16 06:00 MPV 8.6 fl (7.5-11.1) 11/06/16 06:00 Sodium 138 mmol/L (136-145) 11/06/16 06:00 Potassium 4.5 mmol/L (3.5-5.1) 11/06/16 06:00 Chloride 100 mmol/L (98-107) 11/06/16 06:00 Carbon Dioxide 35 mmol/L (21-32) H D 11/06/16 06:00 Anion Gap 3 (8-16) L 11/06/16 06:00 BUN 14 mg/dL (7-18) 11/06/16 06:00 Creatinine 1.0 mg/dL (0.7-1.3) 11/06/16 06:00 Creat Clearance w eGFR > 60 (>60) 11/06/16 06:00 Random Glucose 98 mg/dL (74-106) 11/06/16 06:00 Calcium 9.3 mg/dL (8.5-10.1) 11/06/16 06:00 Total Bilirubin 0.5 mg/dL (0.2-1.0) D 11/06/16 06:00 AST 51 U/L (15-37) H 11/06/16 06:00 ALT 64 U/L (12-78) 11/06/16 06:00 Alkaline Phosphatase 59 U/L (45-117) 11/06/16 06:00 Total Protein 8.1 g/dl (6.4-8.2) 11/06/16 06:00 Albumin 4.1 g/dl (3.4-5.0) 11/06/16 06:00 Urine Color Yellow 11/05/16 22:50 Urine Appearance Clear 11/05/16 22:50 Urine pH 6.0 (5.0-8.0) 11/05/16 22:50 Ur Specific [place] 1.023 (1.001-1.035) 11/05/16 22:50 Urine Protein Negative (NEGATIVE) 11/05/16 22:50 Urine Glucose (UA) Negative (NEGATIVE) 11/05/16 22:50 Urine Ketones Negative (NEGATIVE) 11/05/16 22:50 Urine Blood Negative (NEGATIVE) 11/05/16 22:50 Urine Nitrite Negative (NEGATIVE) 11/05/16 22:50 Urine Bilirubin Negative (NEGATIVE) 11/05/16 22:50 Urine Urobilinogen 2.0 e.u/dl E.U./dl (0.2-1.0) 11/05/16 22:50 Ur Leukocyte Esterase Negative (NEGATIVE) 11/05/16 22:50 RPR Titer Nonreactive (NONREACTIVE) 11/06/16 06:00 labs noted Assessment: 11/09/16 11:10 Withdrawal sx. Plan: Continue detox
[2016-11-09] MEDS: THIAMINE HCL 100 MG TABLET (FP) PO SCH (22:46)
[2016-11-10] MEDS ORDERED: METHADONE HCL 5 MG TABLET (FOR DETOX USE ONLY) PO ONE (06:00)
[2016-11-10 07:06] VITALS: BP 137/85; PULSE 52; TEMP 95.5
--- NOTE | 2016-11-10 10:51 | DS ---
[facility] Detox Discharge Summary Admission Date: 11/05/16 Discharge Date: 11/10/16 - History Present History: Cocaine Dependence, Opioid Dependence Pertinent Past History: Asthma Hep C Hypertension Smoker - Physical Exam Results Vital Signs: Vital Signs Temperature 95.5 F L 11/10/16 07:05 Pulse Rate 52 L 11/10/16 07:05 Respiratory Rate 18 11/10/16 07:05 Blood Pressure 137/85 11/10/16 07:05 O2 Sat by Pulse Oximetry (%) Laboratory Tests 11/05/16 11/06/16 11/06/16 22:50 06:00 06:00 WBC 10.0 RBC 4.50 Hgb 14.2 Hct 42.4 MCV 94.1 MCHC 33.6 RDW 13.9 Plt Count 263 MPV 8.6 Sodium 138 Potassium 4.5 Chloride 100 Carbon Dioxide 35 H D Anion Gap 3 L BUN 14 Creatinine 1.0 Creat Clearance w eGFR > 60 Random Glucose 98 Calcium 9.3 Total Bilirubin 0.5 D AST 51 H ALT 64 Alkaline Phosphatase 59 Total Protein 8.1 Albumin 4.1 Urine Color Yellow Urine Appearance Clear Urine pH 6.0 Ur Specific [place] 1.023 Urine Protein Negative Urine Glucose (UA) Negative Urine Ketones Negative Urine Blood Negative Urine Nitrite Negative Urine Bilirubin Negative Urine Urobilinogen 2.0 e.u/dl Ur Leukocyte Esterase Negative RPR Titer 11/06/16 06:00 WBC RBC Hgb Hct MCV MCHC RDW Plt Count MPV Sodium Potassium Chloride Carbon Dioxide Anion Gap BUN Creatinine Creat Clearance w eGFR Random Glucose Calcium Total Bilirubin AST ALT Alkaline Phosphatase Total Protein Albumin Urine Color Urine Appearance Urine pH Ur Specific [place] Urine Protein Urine Glucose (UA) Urine Ketones Urine Blood Urine Nitrite Urine Bilirubin Urine Urobilinogen Ur Leukocyte Esterase RPR Titer Nonreactive labs noted Pertinent Admission Physical Exam Findings: withdrawal symptoms - Treatment Hospital Course: Detox Protocol Followed, Detoxed Safely, Responded well, Discharged Condition Good - Medication Discharge Medications: Ambulatory Orders Lisinopril [Prinivil] 10 mg PO DAILY #30 tablet 07/18/16 Naproxen [Naprosyn -] 500 mg PO BID PRN 11/05/16 - Diagnosis (1) Cocaine dependence Status: Acute Qualifiers: Substance use status: uncomplicated Qualified Code(s): F14.20 - Cocaine dependence, uncomplicated (2) Hepatitis C Status: Chronic Qualifiers: Viral hepatitis chronicity: chronic Hepatic coma status: without hepatic coma Qualified Code(s): B18.2 - Chronic viral hepatitis C (3) Hypertension Status: Chronic Qualifiers: Hypertension type: essential hypertension Qualified Code(s): I10 - Essential (primary) hypertension (4) Nicotine dependence Status: Chronic Qualifiers: Nicotine product type: cigarettes Substance use status: uncomplicated Qualified Code(s): F17.210 - Nicotine dependence, cigarettes, uncomplicated (5) Opioid dependence with withdrawal Status: Chronic - AMA Did Patient Leave Against Medical Advice: No
== END 2016-11-10 07:45 | disposition home or self-care (01) | DRG 773 ==
LOC: YASAS 12:09 → Y3N 15:33
PROVIDERS: ADMIT Internal Medicine; ATTEND Internal Medicine
PROC: HZ2ZZZZ Detoxification Services for Substance Abuse Treatment (ICD-10-PCS; principal; 2016-11-09)
DX: F11.23 Opioid dependence with withdrawal (principal); F14.20 Cocaine dependence, uncomplicated; F17.213 Nicotine dependence, cigarettes, with withdrawal; I10 Essential (primary) hypertension; B18.2 Chronic viral hepatitis C; K59.01 Slow transit constipation
CPT/HCPCS: 36415; 80053; 81003; 85027; 86593; 87522; 93005; 93010

== ENCOUNTER 2017-01-24 10:41 | Inpatient (IN) | payer OTHER ==
[2017-01-24 12:01] VITALS: BMI 32.5
--- NOTE | 2017-01-24 14:47 | HP ---
COWS - Scale Resting Pulse: 0= [place] 80 or Below Sweatin= Chills/Flushing Restless Observation: 3= Extraneous Movement Pupil Size: 2= Moderately Dilated Bone or Joint Aches: 4=Acute Joint/Muscle Pain Runny Nose/ Eye Tearin= Nasal Congestion GI Upset > 30mins: 1= Stomach Cramp Tremor Observation: 2= Slight Tremor Visible Yawning Observation: 2= >3x During Session Anxiety or Irritability: 2=Irritable/Anxious Goose Flesh Skin: 0=Smooth Skin COWS Score: 18 CIWA Score - CIWA Score Nausea/Vomitin-No Nausea/No Vomiting Muscle Tremors: 4-Moderate,w/Arms Extend Anxiety: 4-Mod. Anxious/Guarded Agitation: 4-Moderately Restless Paroxysmal Sweats: 1-Minimal Palms Moist Orientation: 0-Oriented Tacttile Disturbances: 3-Moderate Itch/Numb/Burn Auditory Disturbances: 0-None Visual Disturbances: 0-None Headache: 1-Very Mild CIWA-Ar Total Score: 17 Admission ROS BHS - HPI Chief Complaint: DETOX TX FOR HEROIN AND ALCOHOL DEPENDENCE SEEKING DETOX TX Allergies/Adverse Reactions: Allergies Allergy/AdvReac Type Severity Reaction Status Date / Time No Known Allergies Allergy Verified 01/24/17 13:44 History of Present Illness: 51 Y/O H/M WITH A HX OF HEROIN AND ALCOHOL DEPENDENCE SEEKING DETOX [place] Exam Limitations: No Limitations - Ebola screening Have you traveled outside of the country in the last 21 days: No Have you had contact with anyone from an Ebola affected area: No Have you been sick,other than usual withdrawal symptoms: No - Review of Systems Constitutional: Chills, Night Sweats EENT: reports: Blurred Vision, Tearing, Nose Congestion Respiratory: reports: Shortness of Breath, Wheezing Cardiac: reports: Lightheadedness GI: reports: Constipated, Diarrhea, Nausea, Poor Fluid Intake, Vomiting, Abdominal cramping : reports: Dysuria (SOMETIMES) Musculoskeletal: reports: Back Pain, Joint Pain, Muscle Pain Integumentary: reports: No Symptoms Reported Neuro: reports: Headache, Tremors, Dizziness Endocrine: reports: No Symptoms Reported Hematology: reports: No Symptoms Reported Psychiatric: reports: Orientated x3, Agitated, Anxious Other Systems: Reviewed and Negative Patient History - Patient Medical History Hx Anemia: No Hx Asthma: Yes (MDI) Hx Chronic Obstructive Pulmonary Disease (COPD): No Hx Cancer: No Hx Cardiac Disorders: No Hx Congestive Heart Failure: No Hx Hypertension: Yes (ON MEDS.) Hx Hypercholesterolemia: No Hx Pacemaker: No HX Cerebrovascular Accident: No Hx Seizures: No Hx Dementia: No Hx Diabetes: No Hx Gastrointestinal Disorders: No Hx Liver Disease: No Hx Genitourinary Disorders: No Hx Sexually Transmitted Disorders: No Hx Renal Disease (ESRD): No Hx Thyroid Disease: No Hx Human Immunodeficiency Virus (HIV): No (NEGATIVE HX) Hx Hepatitis C: Yes Hx Depression: No Hx Suicide Attempt: No (DENIES) Hx Bipolar Disorder: No Hx Schizophrenia: No - Patient Surgical History Past Surgical History: Yes Hx Neurologic Surgery: No Hx Cataract Extraction: No Hx Cardiac Surgery: No Hx Lung Surgery: No Hx Breast Surgery: No Hx Breast Biopsy: No Hx Abdominal Surgery: No Hx Appendectomy: No Hx Cholecystectomy: No Hx Genitourinary Surgery: No Hx Orthopedic Surgery: Yes (left hip/right arm 1984) Anesthesia Reaction: No - PPD History Previous Implant?: Yes Documented Results: Negative w/proof Implanted On Prior [facility] Admission?: Yes Date: 11/07/16 Results: 0 MM PPD to be Administered?: No - Reproductive History Patient is a Female of Child Bearing Age (11 -55 yrs old): No (MALE) - Smoking Cessation Smoking history: Current every day smoker Have you smoked in the past 12 months: Yes Aproximately how many cigarettes per day: 5 Cigars Per Day: 0 Hx Chewing Tobacco Use: No Initiated information on smoking cessation: Yes 'Breaking Loose' booklet given: 01/24/17 - Substance & Tx. History Hx Alcohol Use: Yes (BEER/VODKA) Hx Substance Use: Yes (HEROIN) Substance Use Type: Alcohol, Heroin Hx Substance Use Treatment: Yes ([facility]-DETOX ) - Substances Abused Heroin Route: Inhalation Frequency: Daily Amount used: 10 BAGS Age of first use: 25 Date of Last Use: 01/24/17 Alcohol Route: Oral Frequency: Daily Amount used: 2 SHOTS VODKA/ 6PK BEER Age of first use: 11 Date of Last Use: 01/24/17 Cocaine Route: Inhalation Frequency: 1-3 times last 30 days Amount used: $30-40 Age of first use: 17 Date of Last Use: 01/22/17 Family Disease History - Family Disease History Family Disease History: Diabetes: Mother (), CA: Father (), Other: Father Admission Physical Exam [facility] - Vital Signs Vital Signs: Vital Signs - 24 hr 01/24/17 11:59 Temperature 96 F L Pulse Rate 75 Respiratory 18 Rate Blood Pressure 190/97 - Physical General Appearance: Yes: Moderate Distress, Obese, Irritable, Anxious HEENTM: Yes: EOMI, Normocephalic, MARIAN, Pharynx Normal Respiratory: Yes: Chest Non-Tender, Lungs Clear, Normal Breath Sounds, No Respiratory Distress Neck: Yes: Supple, Trachea in good position Breast: Yes: Breast Exam Deferred Cardiology: Yes: Regular Rhythm, Regular Rate, S1, S2 Abdominal: Yes: Normal Bowel Sounds, Non Tender, Soft, Protuberent Genitourinary: Yes: Other (N/C) Back: Yes: Within Normal Limits Musculoskeletal: Yes: full range of Motion, Gait Steady Extremities: Yes: Normal Range of Motion, Non-Tender Neurological: Yes: wad lubricator II-XII NML intact, Fully Oriented, Alert, Motor Strength 5/5 Integumentary: Yes: Dry, Warm Lymphatic: Yes: Within Normal Limits - Diagnostic (1) Hepatitis C Current Visit: Yes Status: Chronic Qualifiers: Viral hepatitis chronicity: chronic Hepatic coma status: without hepatic coma Qualified Code(s): B18.2 - Chronic viral hepatitis C (2) Hypertension Current Visit: Yes Status: Chronic Qualifiers: Hypertension type: essential hypertension Qualified Code(s): I10 - Essential (primary) hypertension (3) Nicotine dependence Current Visit: Yes Status: Acute Qualifiers: Nicotine product type: cigarettes Substance use status: in withdrawal Qualified Code(s): F17.213 - Nicotine dependence, cigarettes, with withdrawal (4) Opioid dependence with withdrawal Current Visit: Yes Status: Acute (5) History of asthma Current Visit: Yes Status: Chronic (6) Alcohol dependence with uncomplicated withdrawal Current Visit: Yes Status: Acute Cleared for Admission [facility] - Detox or Rehab [facility] Level of Care: Medically Managed Detox Regimen/Protocol: Methadone/Librium [facility] Breath Alcohol Content Breath Alcohol Content: 0 Urine Drug Screen - Results Drug Screen Negative: No Urine Drug Screen Results: AGUSTIN-Cocaine, OPI-Opiates, MTD-Methadone
[2017-01-24] MEDS ORDERED: METHADONE HCL 10 MG TABLET (FOR DETOX USE ONLY) PO ONE ×2 (15:04→23:00)
[2017-01-24] MEDS ORDERED: NICOTINE POLACRILEX 2 MG GUM BC PRN (15:04)
[2017-01-24] MEDS ORDERED: guaiFENesin/D-METHORPHAN HB 10 ML UNIT-DOSE CUPS PO PRN (15:04)
[2017-01-24] MEDS ORDERED: MAGNESIUM HYDROX 2400MG/30ML ORAL SUSPENSION 30 ML CUP PO PRN (15:04)
[2017-01-24] MEDS ORDERED: LOPERAMIDE HCL 2 MG CAPSULE PO PRN (15:04)
[2017-01-24] MEDS ORDERED: MAGNESIUM CITRATE 300 ML BOTTLE PO PRN (15:04)
[2017-01-24] MEDS ORDERED: MAG HYDROX/AL HYDROX/SIMETH 30 ML UNIT-DOSE CUP PO PRN (15:04)
[2017-01-24] MEDS ORDERED: chlordiazePOXIDE HCL 25 MG CAPSULE PO PRN (15:04)
[2017-01-24] MEDS ORDERED: P-EPHED 60MG/TRIPROLIDI 2.5MG TABLET PO PRN (15:04)
[2017-01-24] MEDS ORDERED: ACETAMINOPHEN 325 MG TABLET (FP) PO PRN (15:04)
[2017-01-24] MEDS ORDERED: chlordiazePOXIDE HCL 25 MG CAPSULE PO ONE (15:04)
[2017-01-24] MEDS ORDERED: MENTHOL/PHENOL 1 EACH UD MM PRN (15:04)
[2017-01-24] MEDS ORDERED: METHADONE HCL 10 MG TABLET (FOR DETOX USE ONLY) ONE (18:23)
[2017-01-24] MEDS: chlordiazePOXIDE HCL 25 MG CAPSULE PO SCH ×2 (18:42→22:14)
[2017-01-24] MEDS: NICOTINE 14 MG/24 HOURS TOPICAL PATCH TD SCH (18:45)
[2017-01-24] MEDS: THIAMINE HCL 100 MG TABLET (FP) PO SCH (22:15)
[2017-01-25] MEDS: chlordiazePOXIDE HCL 25 MG CAPSULE PO SCH ×4 (05:32→22:16)
[2017-01-25] MEDS: IBUPROFEN 400 MG TABLET (FP) PO PRN (05:34)
--- NOTE | 2017-01-25 09:24 | EKG ---
Test Reason : Blood Pressure : / mmHG Vent. Rate : 056 BPM Atrial Rate : 056 BPM P-R Int : 170 ms QRS Dur : 080 ms QT Int : 390 ms P-R-T Axes : 053 072 037 degrees QTc Int : 376 ms SINUS BRADYCARDIA NONSPECIFIC ST ABNORMALITY WHEN COMPARED WITH ECG OF 05-NOV-2016 18:03, QT HAS SHORTENED Confirmed by GRACIE MORLEY MD ([id number]) on 01/25/2017 9:24:26 AM Referred By: Confirmed By:GRACIE MORLEY MD
[2017-01-25] MEDS ORDERED: METHADONE HCL 10 MG TABLET (FOR DETOX USE ONLY) PO SCH (10:00)
[2017-01-25 10:09] LABS: URINE APPEARANCE CLEAR; URINE BILIRUBIN NEGATIVE (NEGATIVE); URINE BLOOD NEGATIVE (NEGATIVE); URINE COLOR YELLOW; URINE GLUCOSE (UA) NEGATIVE (NEGATIVE); URINE KETONE NEGATIVE (NEGATIVE); URINE LEUK ESTERASE NEGATIVE (NEGATIVE); URINE NITRITE NEGATIVE (NEGATIVE); URINE PROTEIN NEGATIVE (NEGATIVE); URINE UROBILINOGEN NEGATIVE E.U./dl (0.2-1.0)
[2017-01-25] MEDS: LISINOPRIL 10 MG TABLET (FP) PO SCH (10:18)
[2017-01-25] MEDS: PRENATAL VITAMINS W/ FOLIC ACID TABLET (FP) PO SCH (10:18)
[2017-01-25] MEDS: NICOTINE 14 MG/24 HOURS TOPICAL PATCH TD SCH (10:20)
[2017-01-25 10:23] LABS: MEAN CELL VOLUME 93.9 fl (80-96)
[2017-01-25 10:26] LABS: MCH 31.5 pg (25.7-33.7); MCHC 33.6 g/dl (32.0-35.9); MEAN PLT VOLUME 8.8 fl (7.5-11.1); PLATELET COUNT 260 K/MM3 (134-434); RDW 13.9 % (11.9-15.9); WHITE BLOOD COUNT 8.5 K/mm3 (4.0-10.0)
--- NOTE | 2017-01-25 10:42 | PN ---
S CIWA - CIWA Score Nausea/Vomitin-No Nausea/No Vomiting Muscle Tremors: 4-Moderate,w/Arms Extend Anxiety: 3 Agitation: 4-Moderately Restless Paroxysmal Sweats: 3 Orientation: 0-Oriented Tacttile Disturbances: 0-None Auditory Disturbances: 0-None Visual Disturbances: 0-None Headache: 1-Very Mild CIWA-Ar Total Score: 15 BHS COWS - Scale Resting Pulse: 0= [place] 80 or Below Sweatin=Flushed/Facial Moisture Restless Observation: 1= Difficult to Sit Still Pupil Size: 0= Normal to Room Light Bone or Joint Aches: 2= Severe Diffuse Aches Runny Nose/ Eye Tearin= Nasal Congestion GI Upset > 30mins: 2= Nausea/Diarrhea Tremor Observation of Outstretched Hands: 2= Slight Tremor Visible Yawning Observation: 2= >3x During Session Anxiety or Irritability: 2=Irritable/Anxious Goose Flesh Skin: 0=Smooth Skin COWS Score: 14 S Progress Note (SOAP) Subjective: low back pain sweats shakes interrupted sleep body aches Objective: 01/25/17 10:41 Vital Signs Temperature 97.5 F L 01/25/17 06:00 Pulse Rate 52 L 01/25/17 06:00 Respiratory Rate 18 01/25/17 06:00 Blood Pressure 138/91 01/25/17 06:00 O2 Sat by Pulse Oximetry (%) Laboratory Tests 01/25/17 06:00 WBC 8.5 RBC 4.56 Hgb 14.4 Hct 42.8 MCV 93.9 MCHC 33.6 RDW 13.9 Plt Count 260 MPV 8.8 awake/alert ambulating no acute distress Assessment: 01/25/17 10:42 withdrawal sx Plan: continue detox increase fluids lidocaine patch motrin/tylenol prn labs pending
[2017-01-25] MEDS ORDERED: LIDOCAINE 5% TOPICAL PATCH TP ONE (10:45)
[2017-01-25 12:19] LABS: ALK PHOS 66 U/L (45-117); ANION GAP 8 (8-16); BILIRUBIN,TOTAL 0.4 mg/dL (0.2-1.0); CALCIUM 9.3 mg/dL (8.5-10.1); CO2 31 mmol/L (21-32); COCKROFT - GAULT 117.03; CREATININE 0.9 mg/dL (0.7-1.3); GLUCOSE,RANDOM 95 mg/dL (74-106); SGOT/AST 43 U/L (15-37); SGPT/ALT 60 U/L (12-78); TOT PROT 8.1 g/dl (6.4-8.2)
[2017-01-25] MEDS: THIAMINE HCL 100 MG TABLET (FP) PO SCH (22:16)
[2017-01-26] MEDS: diphenhydrAMINE HCL 50 MG CAPSULE PO PRN ×2 (01:09→22:11)
[2017-01-26] MEDS: chlordiazePOXIDE HCL 25 MG CAPSULE PO SCH ×2 (05:49→10:17)
[2017-01-26] MEDS: IBUPROFEN 400 MG TABLET (FP) PO PRN (10:16)
[2017-01-26] MEDS: LIDOCAINE 5% TOPICAL PATCH TP SCH (10:16)
[2017-01-26] MEDS: METHADONE HCL 5 MG TABLET (FOR DETOX USE ONLY) PO SCH (10:17)
[2017-01-26] MEDS: PRENATAL VITAMINS W/ FOLIC ACID TABLET (FP) PO SCH (10:17)
[2017-01-26] MEDS: NICOTINE 14 MG/24 HOURS TOPICAL PATCH TD SCH (10:17)
[2017-01-26] MEDS: LISINOPRIL 10 MG TABLET (FP) PO SCH (10:17)
[2017-01-26] MEDS: chlordiazePOXIDE 5 MG CAPSULE PO SCH ×2 (18:18→22:11)
[2017-01-26] MEDS: LIDOCAINE PATCH REMOVAL MC SCH ×2 (19:31→23:21)
--- NOTE | 2017-01-26 19:49 | PN ---
[facility] CIWA - CIWA Score Nausea/Vomitin-Mild Nausea/No Vomiting Muscle Tremors: 3 Anxiety: 4-Mod. Anxious/Guarded Agitation: 3 Paroxysmal Sweats: 2 Orientation: 0-Oriented Tacttile Disturbances: 3-Moderate Itch/Numb/Burn Auditory Disturbances: 2-Mild Harshness/Frighten Visual Disturbances: 0-None Headache: 0-None Present CIWA-Ar Total Score: 18 BHS COWS - Scale Resting Pulse: 0= [place] 80 or Below Sweatin=Flushed/Facial Moisture Restless Observation: 1= Difficult to Sit Still Pupil Size: 0= Normal to Room Light Bone or Joint Aches: 2= Severe Diffuse Aches Runny Nose/ Eye Tearin= Runny Nose/Eyes GI Upset > 30mins: 0= None Tremor Observation of Outstretched Hands: 2= Slight Tremor Visible Yawning Observation: 2= >3x During Session Anxiety or Irritability: 2=Irritable/Anxious Goose Flesh Skin: 3=Piloe[place] COWS Score: 16 S Progress Note (SOAP) Subjective: Sweating, Lower Back Ache, Tremors. Objective: PT. A & O X 3. 01/26/17 19:48 Vital Signs Temperature 98.2 F 01/26/17 18:33 Pulse Rate 68 01/26/17 18:33 Respiratory Rate 16 01/26/17 18:33 Blood Pressure 136/76 01/26/17 18:33 O2 Sat by Pulse Oximetry (%) Laboratory Tests 01/24/17 01/25/17 01/25/17 08:00 06:00 06:00 WBC 8.5 RBC 4.56 Hgb 14.4 Hct 42.8 MCV 93.9 MCHC 33.6 RDW 13.9 Plt Count 260 MPV 8.8 Sodium 142 Potassium 4.6 Chloride 103 Carbon Dioxide 31 Anion Gap 8 BUN 13 Creatinine 0.9 Creat Clearance w eGFR > 60 Random Glucose 95 Calcium 9.3 Total Bilirubin 0.4 AST 43 H ALT 60 Alkaline Phosphatase 66 Total Protein 8.1 Albumin 4.0 Urine Color Yellow Urine Appearance Clear Urine pH 5.0 Ur Specific [place] 1.020 Urine Protein Negative Urine Glucose (UA) Negative Urine Ketones Negative Urine Blood Negative Urine Nitrite Negative Urine Bilirubin Negative Urine Urobilinogen Negative Ur Leukocyte Esterase Negative RPR Titer 01/25/17 06:00 WBC RBC Hgb Hct MCV MCHC RDW Plt Count MPV Sodium Potassium Chloride Carbon Dioxide Anion Gap BUN Creatinine Creat Clearance w eGFR Random Glucose Calcium Total Bilirubin AST ALT Alkaline Phosphatase Total Protein Albumin Urine Color Urine Appearance Urine pH Ur Specific [place] Urine Protein Urine Glucose (UA) Urine Ketones Urine Blood Urine Nitrite Urine Bilirubin Urine Urobilinogen Ur Leukocyte Esterase RPR Titer Nonreactive LABS NOTED. Assessment: 01/26/17 19:48 WITHDRAWAL SYMPTOMS. Plan: CONTINUE DETOX.
[2017-01-26] MEDS: THIAMINE HCL 100 MG TABLET (FP) PO SCH (22:11)
[2017-01-27] MEDS: chlordiazePOXIDE 5 MG CAPSULE PO SCH ×2 (05:22→10:26)
[2017-01-27] MEDS: IBUPROFEN 400 MG TABLET (FP) PO PRN ×2 (07:08→22:21)
[2017-01-27] MEDS: METHADONE HCL 5 MG TABLET (FOR DETOX USE ONLY) PO SCH (10:25)
[2017-01-27] MEDS: LISINOPRIL 10 MG TABLET (FP) PO SCH (10:25)
[2017-01-27] MEDS: PRENATAL VITAMINS W/ FOLIC ACID TABLET (FP) PO SCH (10:25)
[2017-01-27] MEDS: NICOTINE 14 MG/24 HOURS TOPICAL PATCH TD SCH (10:26)
[2017-01-27] MEDS: LIDOCAINE 5% TOPICAL PATCH TP SCH (10:26)
--- NOTE | 2017-01-27 13:17 | PN ---
BHS Progress Note (SOAP) Subjective: Sweating,interrupted sleep,restless. As pt. was reaching for the telephone that was on the floor,he slipped from the chair where he was sitting and eased himself to the floor.No head trauma,no signs of injury,no LOC.Pt. says he's fine.Pt. does not have cirrhosis of the liver or grossly abnormal liver enzymes. Objective: 01/27/17 13:15 Vital Signs - 8 hr 01/27/17 01/27/17 07:30 11:16 Temperature 97.7 F 97.5 F L Pulse Rate 71 64 Respiratory 20 18 Rate Blood Pressure 116/70 142/93 Laboratory Tests 01/24/17 01/25/17 01/25/17 08:00 06:00 06:00 WBC 8.5 RBC 4.56 Hgb 14.4 Hct 42.8 MCV 93.9 MCHC 33.6 RDW 13.9 Plt Count 260 MPV 8.8 Sodium 142 Potassium 4.6 Chloride 103 Carbon Dioxide 31 Anion Gap 8 BUN 13 Creatinine 0.9 Creat Clearance w eGFR > 60 Random Glucose 95 Calcium 9.3 Total Bilirubin 0.4 AST 43 H ALT 60 Alkaline Phosphatase 66 Total Protein 8.1 Albumin 4.0 Urine Color Yellow Urine Appearance Clear Urine pH 5.0 Ur Specific [place] 1.020 Urine Protein Negative Urine Glucose (UA) Negative Urine Ketones Negative Urine Blood Negative Urine Nitrite Negative Urine Bilirubin Negative Urine Urobilinogen Negative Ur Leukocyte Esterase Negative RPR Titer 01/25/17 06:00 WBC RBC Hgb Hct MCV MCHC RDW Plt Count MPV Sodium Potassium Chloride Carbon Dioxide Anion Gap BUN Creatinine Creat Clearance w eGFR Random Glucose Calcium Total Bilirubin AST ALT Alkaline Phosphatase Total Protein Albumin Urine Color Urine Appearance Urine pH Ur Specific [place] Urine Protein Urine Glucose (UA) Urine Ketones Urine Blood Urine Nitrite Urine Bilirubin Urine Urobilinogen Ur Leukocyte Esterase RPR Titer Nonreactive labs noted Assessment: 01/27/17 13:15 withdrawal sx. Plan: Continue detox Fall protocol #2
[2017-01-27] MEDS: chlordiazePOXIDE HCL 10 MG CAPSULE PO SCH ×2 (17:08→22:17)
[2017-01-27] MEDS: diphenhydrAMINE HCL 50 MG CAPSULE PO PRN (22:17)
[2017-01-27] MEDS: LIDOCAINE PATCH REMOVAL MC SCH (22:17)
[2017-01-27] MEDS: THIAMINE HCL 100 MG TABLET (FP) PO SCH (22:17)
[2017-01-28] MEDS: chlordiazePOXIDE HCL 10 MG CAPSULE PO SCH (05:51)
[2017-01-28] MEDS: LISINOPRIL 10 MG TABLET (FP) PO SCH (09:20)
[2017-01-28] MEDS: PRENATAL VITAMINS W/ FOLIC ACID TABLET (FP) PO SCH (09:20)
[2017-01-28] MEDS: NICOTINE 14 MG/24 HOURS TOPICAL PATCH TD SCH (09:22)
[2017-01-28] MEDS: LIDOCAINE 5% TOPICAL PATCH TP SCH (09:22)
[2017-01-28] MEDS ORDERED: METHADONE HCL 10 MG TABLET (FOR DETOX USE ONLY) PO SCH (10:00)
[2017-01-28] MEDS ORDERED: METHADONE HCL 5 MG TABLET (FOR DETOX USE ONLY) PO SCH (10:00)
[2017-01-28 10:17] VITALS: BP 142/84; PULSE 74; TEMP 97.4
--- NOTE | 2017-01-28 14:45 | DS ---
[facility] Detox Discharge Summary Admission Date: 01/24/17 Discharge Date: 01/28/17 - History Present History: Alcohol Dependence, Opioid Dependence Additional Comments: ADVISED PATIENT TO FOLLOW-UP WITH INSURANCE DEFENSE ATTORNEY AFTER DISCHARGE FROM DETOX FOR GENERAL MEDICAL ASSESSMENT. Pertinent Past History: Asthma, HTN, Hep C. - Physical Exam Results Vital Signs: Vital Signs Temperature 97.4 F L 01/28/17 10:17 Pulse Rate 74 01/28/17 10:17 Respiratory Rate 16 01/28/17 10:17 Blood Pressure 142/84 01/28/17 10:17 O2 Sat by Pulse Oximetry (%) Pertinent Admission Physical Exam Findings: WITHDRAWAL SYMPTOMS. Laboratory Tests 01/24/17 01/25/17 01/25/17 08:00 06:00 06:00 WBC 8.5 RBC 4.56 Hgb 14.4 Hct 42.8 MCV 93.9 MCHC 33.6 RDW 13.9 Plt Count 260 MPV 8.8 Sodium 142 Potassium 4.6 Chloride 103 Carbon Dioxide 31 Anion Gap 8 BUN 13 Creatinine 0.9 Creat Clearance w eGFR > 60 Random Glucose 95 Calcium 9.3 Total Bilirubin 0.4 AST 43 H ALT 60 Alkaline Phosphatase 66 Total Protein 8.1 Albumin 4.0 Urine Color Yellow Urine Appearance Clear Urine pH 5.0 Ur Specific [place] 1.020 Urine Protein Negative Urine Glucose (UA) Negative Urine Ketones Negative Urine Blood Negative Urine Nitrite Negative Urine Bilirubin Negative Urine Urobilinogen Negative Ur Leukocyte Esterase Negative RPR Titer 01/25/17 06:00 WBC RBC Hgb Hct MCV MCHC RDW Plt Count MPV Sodium Potassium Chloride Carbon Dioxide Anion Gap BUN Creatinine Creat Clearance w eGFR Random Glucose Calcium Total Bilirubin AST ALT Alkaline Phosphatase Total Protein Albumin Urine Color Urine Appearance Urine pH Ur Specific [place] Urine Protein Urine Glucose (UA) Urine Ketones Urine Blood Urine Nitrite Urine Bilirubin Urine Urobilinogen Ur Leukocyte Esterase RPR Titer Nonreactive LABS NOTED. - Treatment Hospital Course: Detox Protocol Followed, Detoxed Safely, Responded well, Discharged Condition Good Patient has Accepted a Rehab Referral to: PT. GOING HOME, WILL RETURN TO [facility]. - Medication Discharge Medications: Ambulatory Orders Lisinopril [Prinivil] 10 mg PO DAILY #30 tablet 07/18/16 Naproxen [Naprosyn -] 500 mg PO BID PRN 11/05/16 - Diagnosis (1) Alcohol dependence with uncomplicated withdrawal Status: Acute (2) Nicotine dependence Status: Chronic Qualifiers: Nicotine product type: cigarettes Substance use status: in withdrawal Qualified Code(s): F17.213 - Nicotine dependence, cigarettes, with withdrawal (3) Opioid dependence with withdrawal Status: Acute (4) Hepatitis C Status: Chronic Qualifiers: Viral hepatitis chronicity: chronic Hepatic coma status: without hepatic coma Qualified Code(s): B18.2 - Chronic viral hepatitis C (5) History of asthma Status: Chronic (6) Hypertension Status: Chronic Qualifiers: Hypertension type: essential hypertension Qualified Code(s): I10 - Essential (primary) hypertension - AMA Did Patient Leave Against Medical Advice: No
[2017-01-29] MEDS ORDERED: METHADONE HCL 5 MG TABLET (FOR DETOX USE ONLY) PO SCH (06:00)
== END 2017-01-28 09:37 | disposition home or self-care (01) | DRG 773 ==
LOC: YASAS 10:41 → Y6N 17:13
PROVIDERS: ADMIT Internal Medicine Addiction Medicine; ATTEND Internal Medicine Addiction Medicine
PROC: HZ2ZZZZ Detoxification Services for Substance Abuse Treatment (ICD-10-PCS; principal; 2017-01-24)
DX: F11.23 Opioid dependence with withdrawal (principal); F10.230 Alcohol dependence with withdrawal, uncomplicated; F17.213 Nicotine dependence, cigarettes, with withdrawal; B18.2 Chronic viral hepatitis C; I10 Essential (primary) hypertension; J45.909 Unspecified asthma, uncomplicated
CPT/HCPCS: 36415; 80053; 81003; 85027; 86593; 93005; 93010

== ENCOUNTER 2017-03-22 10:20 | Inpatient (IN) | payer OTHER ==
[2017-03-22 15:03] VITALS: BMI 31.0
--- NOTE | 2017-03-22 15:58 | HP ---
COWS - Scale Resting Pulse: 0= [place] 80 or Below Sweatin=Flushed/Facial Moisture Restless Observation: 3= Extraneous Movement Pupil Size: 2= Moderately Dilated Bone or Joint Aches: 2= Severe Diffuse Aches Runny Nose/ Eye Tearin= Runny Nose/Eyes GI Upset > 30mins: 3= Vomiting/Diarrhea Tremor Observation: 2= Slight Tremor Visible Yawning Observation: 2= >3x During Session Anxiety or Irritability: 2=Irritable/Anxious Goose Flesh Skin: 0=Smooth Skin COWS Score: 20 CIWA Score - CIWA Score Nausea/Vomitin Muscle Tremors: 3 Anxiety: 3 Agitation: 3 Paroxysmal Sweats: 2 Orientation: 0-Oriented Tacttile Disturbances: 2-Mild Itch/Numbness/Burn Auditory Disturbances: 2-Mild Harshness/Frighten Visual Disturbances: 2-Mild Sensitivity Headache: 2-Mild CIWA-Ar Total Score: 22 Admission ROS BHS - HPI Chief Complaint: i need help to stop using heroin and alcohol Allergies/Adverse Reactions: Allergies Allergy/AdvReac Type Severity Reaction Status Date / Time No Known Allergies Allergy Verified 03/22/17 15:57 History of Present Illness: this 51 years old male with heroin and alcohol dependence,seeking detox ,last treatment at [facility] from 01/24/17 to 01/28/17 one of multiple admissions of detox hypertension,sciatica left,s/p surgery of left hip and right wrist,hepatitis c weight loss longest period of sobriety 5 years Exam Limitations: No Limitations - Ebola screening Have you been sick,other than usual withdrawal symptoms: No - Review of Systems Constitutional: Chills, Diaphoresis, Loss of Appetite, Malaise, Night Sweats, Changes in sleep, Weakness, Unintentional Wgt. Loss EENT: reports: Tearing, Nose Congestion Respiratory: reports: No Symptoms reported, Other (asthma) Cardiac: reports: No Symptoms Reported GI: reports: Diarrhea, Nausea, Vomiting, Abdominal cramping : reports: No Symptoms Reported Musculoskeletal: reports: Back Pain, Joint Pain, Muscle Pain, Joint Stiffness Integumentary: reports: Dryness Neuro: reports: Headache, Tremors Endocrine: reports: No Symptoms Reported Hematology: reports: No Symptoms Reported Psychiatric: reports: No Sypmtoms Reported Patient History - Patient Medical History Hx Anemia: No Hx Asthma: Yes (MDI) Hx Chronic Obstructive Pulmonary Disease (COPD): No Hx Cancer: No Hx Cardiac Disorders: No Hx Congestive Heart Failure: No Hx Hypertension: Yes (ON MEDS.) Hx Hypercholesterolemia: No Hx Pacemaker: No HX Cerebrovascular Accident: No Hx Seizures: No Hx Dementia: No Hx Diabetes: No Hx Gastrointestinal Disorders: No Hx Liver Disease: No Hx Genitourinary Disorders: No Hx Sexually Transmitted Disorders: No Hx Renal Disease (ESRD): No Hx Thyroid Disease: No Hx Human Immunodeficiency Virus (HIV): No (NEGATIVE HX last 01/24/17 to ) Hx Hepatitis C: Yes Hx Depression: No Hx Suicide Attempt: No (DENIES) Hx Bipolar Disorder: No Hx Schizophrenia: No Other Medical History: no suicidal,no homicidal,low back pain sciatica left - Patient Surgical History Past Surgical History: Yes Hx Neurologic Surgery: No Hx Cataract Extraction: No Hx Cardiac Surgery: No Hx Lung Surgery: No Hx Breast Surgery: No Hx Breast Biopsy: No Hx Abdominal Surgery: No Hx Appendectomy: No Hx Cholecystectomy: No Hx Genitourinary Surgery: No Hx Section: No Hx Orthopedic Surgery: Yes (left hip/right arm 1984) Anesthesia Reaction: No - PPD History Previous Implant?: Yes Documented Results: Negative w/proof Implanted On Prior [facility] Admission?: Yes Date: 11/07/16 Results: 0 MM PPD to be Administered?: No - Smoking Cessation Smoking history: Current every day smoker Have you smoked in the past 12 months: Yes Aproximately how many cigarettes per day: 5 Cigars Per Day: 0 Hx Chewing Tobacco Use: No Initiated information on smoking cessation: Yes 'Breaking Loose' booklet given: 03/22/17 - Substance & Tx. History Hx Alcohol Use: Yes Hx Substance Use: Yes Substance Use Type: Alcohol, Heroin Hx Substance Use Treatment: Yes ([facility] 01/24/17 to 01/28/17) - Substances Abused Heroin Route: Inhalation Frequency: Daily Amount used: 10 bags Age of first use: 22 Date of Last Use: 03/21/17 Alcohol Route: Oral Frequency: Daily Amount used: 3-4 16 oz beers Age of first use: 12 Date of Last Use: 03/21/17 Family Disease History - Family Disease History Family Disease History: Diabetes: Mother (), CA: Father (), Other: Father Admission Physical Exam BHS - Vital Signs Vital Signs: Vital Signs - 24 hr 03/22/17 15:01 Temperature 97 F L Pulse Rate 55 L Respiratory 20 Rate Blood Pressure 161/98 - Physical General Appearance: Yes: Moderate Distress, Tremorous, Irritable, Sweating, Anxious HEENTM: Yes: Hearing grossly Normal, Normal ENT Inspection, MARIAN, Pharynx Normal Respiratory: Yes: Chest Non-Tender, Lungs Clear, Normal Breath Sounds, Other ( asthma history) Neck: Yes: Within Normal Limits, Supple, Trachea in good position Breast: Yes: Within Normal Limits Cardiology: Yes: Within Normal Limits, Regular Rhythm, Regular Rate, S1, S2 Abdominal: Yes: Within Normal Limits, Normal Bowel Sounds, Non Tender, Flat, Soft Genitourinary: Yes: Within Normal Limits Back: Yes: Within Normal Limits, Muscle Spasm Musculoskeletal: Yes: full range of Motion, Back pain, Muscle Pain Extremities: Yes: Within Normal Limits, Normal Range of Motion, Tremors Neurological: Yes: 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 intact, Alert, Motor Strength 5/5 Integumentary: Yes: Dry Lymphatic: Yes: Within Normal Limits - Diagnostic (1) Alcohol dependence with uncomplicated withdrawal Current Visit: No Status: Acute (2) Cocaine dependence Current Visit: No Status: Acute Qualifiers: Substance use status: uncomplicated Qualified Code(s): F14.20 - Cocaine dependence, uncomplicated (3) Opioid dependence with withdrawal Current Visit: No Status: Acute (4) Hepatitis C Current Visit: No Status: Chronic Qualifiers: Viral hepatitis chronicity: chronic Hepatic coma status: without hepatic coma Qualified Code(s): B18.2 - Chronic viral hepatitis C (5) History of asthma Current Visit: No Status: Chronic (6) Hypertension Current Visit: No Status: Chronic Qualifiers: Hypertension type: essential hypertension Qualified Code(s): I10 - Essential (primary) hypertension (7) Nicotine dependence Current Visit: No Status: Chronic Qualifiers: Nicotine product type: cigarettes Substance use status: in withdrawal Qualified Code(s): F17.213 - Nicotine dependence, cigarettes, with withdrawal (8) Weight loss Current Visit: Yes Status: Acute Cleared for Admission [facility] - Detox or Rehab [facility] Level of Care: Medically Managed Detox Regimen/Protocol: Methadone/Librium S Breath Alcohol Content Breath Alcohol Content: 0 Urine Drug Screen - Results Drug Screen Negative: No Urine Drug Screen Results: AGUSTIN-Cocaine, OPI-Opiates
[2017-03-22] MEDS ORDERED: IBUPROFEN 400 MG TABLET (FP) PO PRN (16:15)
[2017-03-22] MEDS ORDERED: MAGNESIUM HYDROX 2400MG/30ML ORAL SUSPENSION 30 ML CUP PO PRN (16:15)
[2017-03-22] MEDS ORDERED: MAG HYDROX/AL HYDROX/SIMETH 30 ML UNIT-DOSE CUP PO PRN (16:15)
[2017-03-22] MEDS ORDERED: guaiFENesin/D-METHORPHAN HB 10 ML UNIT-DOSE CUPS PO PRN (16:15)
[2017-03-22] MEDS ORDERED: ACETAMINOPHEN 325 MG TABLET (FP) PO PRN (16:15)
[2017-03-22] MEDS ORDERED: MENTHOL/PHENOL 1 EACH UD MM PRN (16:15)
[2017-03-22] MEDS ORDERED: P-EPHED 60MG/TRIPROLIDI 2.5MG TABLET PO PRN (16:15)
[2017-03-22] MEDS ORDERED: chlordiazePOXIDE HCL 25 MG CAPSULE PO PRN (16:15)
[2017-03-22] MEDS ORDERED: LOPERAMIDE HCL 2 MG CAPSULE PO PRN (16:15)
[2017-03-22] MEDS ORDERED: hydrOXYzine PAMOATE 25 MG CAPSULE (FP) PO PRN (16:15)
[2017-03-22] MEDS ORDERED: MAGNESIUM CITRATE 300 ML BOTTLE PO PRN (16:15)
[2017-03-22] MEDS ORDERED: NAPROXEN 500 MG TABLET (FP) PO PRN (16:17)
[2017-03-22] MEDS ORDERED: CYCLOBENZAPRINE HCL 10 MG TABLET (FP) PO PRN (16:18)
[2017-03-22] MEDS ORDERED: METHADONE HCL 10 MG TABLET (FOR DETOX USE ONLY) PO ONE ×2 (17:00→23:00)
[2017-03-22] MEDS: LISINOPRIL 10 MG TABLET (FP) PO SCH (17:04)
[2017-03-22] MEDS: NICOTINE 14 MG/24 HOURS TOPICAL PATCH TD SCH (17:04)
[2017-03-22] MEDS: chlordiazePOXIDE HCL 25 MG CAPSULE PO SCH (22:40)
[2017-03-22] MEDS: diphenhydrAMINE HCL 50 MG CAPSULE PO PRN (22:40)
[2017-03-22] MEDS: cloNIDine HCL 0.1 MG TABLET PO SCH (22:40)
[2017-03-22] MEDS: THIAMINE HCL 100 MG TABLET (FP) PO SCH (22:40)
[2017-03-22 22:44] LABS: URINE APPEARANCE CLEAR; URINE BILIRUBIN NEGATIVE (NEGATIVE); URINE BLOOD NEGATIVE (NEGATIVE); URINE COLOR YELLOW; URINE GLUCOSE (UA) NEGATIVE (NEGATIVE); URINE KETONE TRACE (NEGATIVE); URINE LEUK ESTERASE TRACE (NEGATIVE); URINE NITRITE NEGATIVE (NEGATIVE); URINE PROTEIN NEGATIVE (NEGATIVE); URINE UROBILINOGEN NEGATIVE mg/dL (0.2-1.0)
[2017-03-22 23:08] LABS: CALCIUM OXALATE CRYSTALS MODERATE /hpf (NONE SEEN); URINE MUCUS RARE; URINE RBC 2 /hpf (0-3); URINE WBC 4 /hpf (3-5)
[2017-03-23] MEDS: chlordiazePOXIDE HCL 25 MG CAPSULE PO SCH ×4 (05:50→22:36)
[2017-03-23] MEDS ORDERED: METHADONE HCL 10 MG TABLET (FOR DETOX USE ONLY) PO SCH (10:00)
[2017-03-23] MEDS: LISINOPRIL 10 MG TABLET (FP) PO SCH (10:25)
[2017-03-23] MEDS: PRENATAL VITAMINS W/ FOLIC ACID TABLET (FP) PO SCH (10:25)
[2017-03-23] MEDS: NICOTINE 14 MG/24 HOURS TOPICAL PATCH TD SCH (10:27)
[2017-03-23] MEDS: cloNIDine HCL 0.1 MG TABLET PO SCH ×2 (10:28→22:36)
[2017-03-23 11:07] LABS: ALBUMIN 3.3 g/dl (3.4-5.0); ALK PHOS 50 U/L (45-117); ANION GAP 6 (8-16); BILIRUBIN,TOTAL 0.6 mg/dL (0.2-1.0); CALCIUM 8.9 mg/dL (8.5-10.1); CO2 30 mmol/L (21-32); CREATININE 0.8 mg/dL (0.7-1.3); GLUCOSE,RANDOM 94 mg/dL (74-106); SGOT/AST 33 U/L (15-37); SGPT/ALT 42 U/L (12-78); TOT PROT 6.6 g/dl (6.4-8.2)
[2017-03-23 11:08] LABS: MCH 31.7 pg (25.7-33.7); MEAN CELL VOLUME 93.1 fl (80-96); MEAN PLT VOLUME 9.2 fl (7.5-11.1); PLATELET COUNT 234 K/MM3 (134-434); RDW 13.7 % (11.9-15.9); WHITE BLOOD COUNT 8.7 K/mm3 (4.0-10.0)
--- NOTE | 2017-03-23 14:43 | PN ---
[facility] CIWA - CIWA Score Nausea/Vomitin Muscle Tremors: 4-Moderate,w/Arms Extend Anxiety: 3 Agitation: 2 Paroxysmal Sweats: 3 Orientation: 0-Oriented Tacttile Disturbances: 0-None Auditory Disturbances: 2-Mild Harshness/Frighten Visual Disturbances: 2-Mild Sensitivity Headache: 0-None Present CIWA-Ar Total Score: 18 BHS COWS - Scale Resting Pulse: 0= [place] 80 or Below Sweatin= Chills/Flushing Restless Observation: 1= Difficult to Sit Still Pupil Size: 0= Normal to Room Light Bone or Joint Aches: 2= Severe Diffuse Aches Runny Nose/ Eye Tearin= Nasal Congestion GI Upset > 30mins: 1= Stomach Cramp Tremor Observation of Outstretched Hands: 2= Slight Tremor Visible Yawning Observation: 1= 1-2x During Session Anxiety or Irritability: 2=Irritable/Anxious Goose Flesh Skin: 3=Piloerection COWS Score: 14 S Progress Note (SOAP) Subjective: Interrupted sleep, Constipation, Stomach Cramping, Sweating, Tremors. Objective: PT. A & O X 3. NO ACUTE DISTRESS. PT. DENIES CHEST PAIN. 03/23/17 14:41 Vital Signs Temperature 96.8 F L 03/23/17 10:00 Pulse Rate 64 03/23/17 10:00 Respiratory Rate 18 03/23/17 10:00 Blood Pressure 109/65 03/23/17 10:00 O2 Sat by Pulse Oximetry (%) Laboratory Tests 03/22/17 03/23/17 03/23/17 16:15 07:30 07:30 WBC 8.7 RBC 4.46 Hgb 14.1 Hct 41.5 MCV 93.1 MCH 31.7 MCHC 34.0 RDW 13.7 Plt Count 234 MPV 9.2 Sodium 139 Potassium 4.1 Chloride 103 Carbon Dioxide 30 Anion Gap 6 L BUN 11 Creatinine 0.8 Creat Clearance w eGFR > 60 Random Glucose 94 Calcium 8.9 Total Bilirubin 0.6 D AST 33 D ALT 42 D Alkaline Phosphatase 50 D Total Protein 6.6 Albumin 3.3 L Urine Color Yellow Urine Appearance Clear Urine pH 6.0 Ur Specific [place] 1.025 Urine Protein Negative Urine Glucose (UA) Negative Urine Ketones Trace H Urine Blood Negative Urine Nitrite Negative Urine Bilirubin Negative Urine Urobilinogen Negative Ur Leukocyte Esterase Trace Urine RBC 2 Urine WBC 4 Calcium Oxalate Crystal Moderate Urine Mucus Rare RPR Titer 03/23/17 07:30 WBC RBC Hgb Hct MCV MCH MCHC RDW Plt Count MPV Sodium Potassium Chloride Carbon Dioxide Anion Gap BUN Creatinine Creat Clearance w eGFR Random Glucose Calcium Total Bilirubin AST ALT Alkaline Phosphatase Total Protein Albumin Urine Color Urine Appearance Urine pH Ur Specific [place] Urine Protein Urine Glucose (UA) Urine Ketones Urine Blood Urine Nitrite Urine Bilirubin Urine Urobilinogen Ur Leukocyte Esterase Urine RBC Urine WBC Calcium Oxalate Crystal Urine Mucus RPR Titer Nonreactive LABS NOTED. Assessment: 03/23/17 14:42 WITHDRAWAL SYMPTOMS. Plan: CONTINUE DETOX.
[2017-03-23] MEDS: diphenhydrAMINE HCL 50 MG CAPSULE PO PRN (22:36)
[2017-03-23] MEDS: THIAMINE HCL 100 MG TABLET (FP) PO SCH (22:36)
[2017-03-24] MEDS: chlordiazePOXIDE HCL 25 MG CAPSULE PO SCH ×3 (05:36→16:59)
[2017-03-24] MEDS: NICOTINE 14 MG/24 HOURS TOPICAL PATCH TD SCH (10:54)
[2017-03-24] MEDS: METHADONE HCL 5 MG TABLET (FOR DETOX USE ONLY) PO SCH (10:54)
[2017-03-24] MEDS: cloNIDine HCL 0.1 MG TABLET PO SCH ×2 (10:54→22:27)
[2017-03-24] MEDS: LISINOPRIL 10 MG TABLET (FP) PO SCH (10:55)
[2017-03-24] MEDS: PRENATAL VITAMINS W/ FOLIC ACID TABLET (FP) PO SCH (10:55)
--- NOTE | 2017-03-24 15:04 | PN ---
S CIWA - CIWA Score Nausea/Vomitin Muscle Tremors: 4-Moderate,w/Arms Extend Anxiety: 3 Agitation: 3 Paroxysmal Sweats: 3 Orientation: 0-Oriented Tacttile Disturbances: 1-Very Mild Itch/Numbness Auditory Disturbances: 0-None Visual Disturbances: 0-None Headache: 2-Mild CIWA-Ar Total Score: 19 BHS COWS - Scale Resting Pulse: 0= [place] 80 or Below Sweatin=Flushed/Facial Moisture Restless Observation: 3= Extraneous Movement Pupil Size: 0= Normal to Room Light Bone or Joint Aches: 2= Severe Diffuse Aches Runny Nose/ Eye Tearin= Runny Nose/Eyes GI Upset > 30mins: 1= Stomach Cramp Tremor Observation of Outstretched Hands: 2= Slight Tremor Visible Yawning Observation: 1= 1-2x During Session Anxiety or Irritability: 2=Irritable/Anxious Goose Flesh Skin: 0=Smooth Skin COWS Score: 15 S Progress Note (SOAP) Subjective: Sweating, chills, tremor, interrupted sleep Objective: 03/24/17 15:03 Last Vital Signs Temp Pulse Resp BP Pulse Ox 97.6 F 56 L 18 141/86 03/24/17 14:31 03/24/17 14:31 03/24/17 14:31 03/24/17 14:31 Laboratory Tests 03/22/17 03/23/17 03/23/17 16:15 07:30 07:30 WBC 8.7 RBC 4.46 Hgb 14.1 Hct 41.5 MCV 93.1 MCH 31.7 MCHC 34.0 RDW 13.7 Plt Count 234 MPV 9.2 Sodium 139 Potassium 4.1 Chloride 103 Carbon Dioxide 30 Anion Gap 6 L BUN 11 Creatinine 0.8 Creat Clearance w eGFR > 60 Random Glucose 94 Calcium 8.9 Total Bilirubin 0.6 D AST 33 D ALT 42 D Alkaline Phosphatase 50 D Total Protein 6.6 Albumin 3.3 L Urine Color Yellow Urine Appearance Clear Urine pH 6.0 Ur Specific [place] 1.025 Urine Protein Negative Urine Glucose (UA) Negative Urine Ketones Trace H Urine Blood Negative Urine Nitrite Negative Urine Bilirubin Negative Urine Urobilinogen Negative Ur Leukocyte Esterase Trace Urine RBC 2 Urine WBC 4 Calcium Oxalate Crystal Moderate Urine Mucus Rare RPR Titer 03/23/17 07:30 WBC RBC Hgb Hct MCV MCH MCHC RDW Plt Count MPV Sodium Potassium Chloride Carbon Dioxide Anion Gap BUN Creatinine Creat Clearance w eGFR Random Glucose Calcium Total Bilirubin AST ALT Alkaline Phosphatase Total Protein Albumin Urine Color Urine Appearance Urine pH Ur Specific [place] Urine Protein Urine Glucose (UA) Urine Ketones Urine Blood Urine Nitrite Urine Bilirubin Urine Urobilinogen Ur Leukocyte Esterase Urine RBC Urine WBC Calcium Oxalate Crystal Urine Mucus RPR Titer Nonreactive Labs noted Assessment: 03/24/17 15:03 Withdrawal symptoms Plan: Continue detox
[2017-03-24 21:25] LABS: URINE APPEARANCE CLEAR; URINE BILIRUBIN NEGATIVE (NEGATIVE); URINE BLOOD NEGATIVE (NEGATIVE); URINE COLOR LTYELLOW; URINE GLUCOSE (UA) NEGATIVE (NEGATIVE); URINE KETONE NEGATIVE (NEGATIVE); URINE LEUK ESTERASE TRACE (NEGATIVE); URINE NITRITE NEGATIVE (NEGATIVE); URINE PROTEIN NEGATIVE (NEGATIVE); URINE UROBILINOGEN NEGATIVE mg/dL (0.2-1.0)
[2017-03-24 21:28] LABS: URINE MUCUS RARE; URINE RBC 1 /hpf (0-3); URINE WBC 3 /hpf (3-5)
[2017-03-24] MEDS: THIAMINE HCL 100 MG TABLET (FP) PO SCH (22:27)
[2017-03-24] MEDS: chlordiazePOXIDE 5 MG CAPSULE PO SCH (22:27)
[2017-03-24] MEDS: diphenhydrAMINE HCL 50 MG CAPSULE PO PRN (22:28)
[2017-03-25] MEDS: chlordiazePOXIDE 5 MG CAPSULE PO SCH ×3 (05:47→17:15)
[2017-03-25] MEDS: NICOTINE 14 MG/24 HOURS TOPICAL PATCH TD SCH (10:49)
[2017-03-25] MEDS: PRENATAL VITAMINS W/ FOLIC ACID TABLET (FP) PO SCH (10:50)
[2017-03-25] MEDS: METHADONE HCL 5 MG TABLET (FOR DETOX USE ONLY) PO SCH (10:50)
[2017-03-25] MEDS: cloNIDine HCL 0.1 MG TABLET PO SCH ×2 (10:50→22:28)
[2017-03-25] MEDS: LISINOPRIL 10 MG TABLET (FP) PO SCH (10:50)
--- NOTE | 2017-03-25 12:01 | EKG ---
Test Reason : Blood Pressure : / mmHG Vent. Rate : 050 BPM Atrial Rate : 050 BPM P-R Int : 176 ms QRS Dur : 080 ms QT Int : 432 ms P-R-T Axes : 006 074 053 degrees QTc Int : 393 ms SINUS BRADYCARDIA OTHERWISE NORMAL ECG WHEN COMPARED WITH ECG OF 24-JAN-2017 17:23, NO SIGNIFICANT CHANGE WAS FOUND Confirmed by PRINCESS WATERMAN MD ([id number]) on 03/25/2017 12:01:47 PM Referred By: Confirmed By:PRINCESS WATERMAN MD
--- NOTE | 2017-03-25 12:33 | PN ---
BHS Progress Note (SOAP) Subjective: Interrupted sleep, Sweating. Objective: PT. A & O X 3. NO ACUTE DISTRESS. 03/25/17 12:31 Vital Signs Temperature 97.7 F 03/25/17 09:22 Pulse Rate 67 03/25/17 09:22 Respiratory Rate 18 03/25/17 09:22 Blood Pressure 125/75 03/25/17 09:22 O2 Sat by Pulse Oximetry (%) Laboratory Tests 03/22/17 03/23/17 03/23/17 16:15 07:30 07:30 WBC 8.7 RBC 4.46 Hgb 14.1 Hct 41.5 MCV 93.1 MCH 31.7 MCHC 34.0 RDW 13.7 Plt Count 234 MPV 9.2 Sodium 139 Potassium 4.1 Chloride 103 Carbon Dioxide 30 Anion Gap 6 L BUN 11 Creatinine 0.8 Creat Clearance w eGFR > 60 Random Glucose 94 Calcium 8.9 Total Bilirubin 0.6 D AST 33 D ALT 42 D Alkaline Phosphatase 50 D Total Protein 6.6 Albumin 3.3 L Urine Color Yellow Urine Appearance Clear Urine pH 6.0 Ur Specific [place] 1.025 Urine Protein Negative Urine Glucose (UA) Negative Urine Ketones Trace H Urine Blood Negative Urine Nitrite Negative Urine Bilirubin Negative Urine Urobilinogen Negative Ur Leukocyte Esterase Trace Urine RBC 2 Urine WBC 4 Ur Epithelial Cells Calcium Oxalate Crystal Moderate Urine Mucus Rare RPR Titer 03/23/17 03/24/17 07:30 18:52 WBC RBC Hgb Hct MCV MCH MCHC RDW Plt Count MPV Sodium Potassium Chloride Carbon Dioxide Anion Gap BUN Creatinine Creat Clearance w eGFR Random Glucose Calcium Total Bilirubin AST ALT Alkaline Phosphatase Total Protein Albumin Urine Color Ltyellow Urine Appearance Clear Urine pH 5.0 Ur Specific [place] 1.025 Urine Protein Negative Urine Glucose (UA) Negative Urine Ketones Negative Urine Blood Negative Urine Nitrite Negative Urine Bilirubin Negative Urine Urobilinogen Negative Ur Leukocyte Esterase Trace Urine RBC 1 Urine WBC 3 Ur Epithelial Cells Rare Calcium Oxalate Crystal Urine Mucus Rare RPR Titer Nonreactive LABS NOTED. RESULTS OF REPEAT UA (03/24/2017) NOTED. 03/25/17 12:33 Assessment: 03/25/17 12:32 WITHDRAWAL SYMPTOMS. Plan: CONTINUE DETOX.
[2017-03-25] MEDS: diphenhydrAMINE HCL 50 MG CAPSULE PO PRN (22:27)
[2017-03-25] MEDS: chlordiazePOXIDE HCL 10 MG CAPSULE PO SCH (22:28)
[2017-03-25] MEDS: THIAMINE HCL 100 MG TABLET (FP) PO SCH (22:58)
[2017-03-26] MEDS: chlordiazePOXIDE HCL 10 MG CAPSULE PO SCH ×3 (06:01→17:13)
[2017-03-26] MEDS ORDERED: METHADONE HCL 10 MG TABLET (FOR DETOX USE ONLY) PO SCH (10:00)
[2017-03-26] MEDS: NICOTINE 14 MG/24 HOURS TOPICAL PATCH TD SCH (10:45)
[2017-03-26] MEDS: PRENATAL VITAMINS W/ FOLIC ACID TABLET (FP) PO SCH (10:46)
[2017-03-26] MEDS: LISINOPRIL 10 MG TABLET (FP) PO SCH (10:46)
[2017-03-26] MEDS: cloNIDine HCL 0.1 MG TABLET PO SCH ×2 (10:46→22:22)
--- NOTE | 2017-03-26 12:08 | PN ---
S CIWA - CIWA Score Nausea/Vomitin-No Nausea/No Vomiting Muscle Tremors: 4-Moderate,w/Arms Extend Anxiety: 4-Mod. Anxious/Guarded Agitation: 3 Paroxysmal Sweats: No Perspiration Orientation: 0-Oriented Tacttile Disturbances: 2-Mild Itch/Numbness/Burn Auditory Disturbances: 0-None Visual Disturbances: 0-None Headache: 0-None Present CIWA-Ar Total Score: 13 BHS COWS - Scale Resting Pulse: 0= [place] 80 or Below Sweatin= Chills/Flushing Restless Observation: 3= Extraneous Movement Pupil Size: 2= Moderately Dilated Bone or Joint Aches: 4=Acute Joint/Muscle Pain Runny Nose/ Eye Tearin= Nasal Congestion GI Upset > 30mins: 0= None Tremor Observation of Outstretched Hands: 1= Tremor [place], Not Seen Yawning Observation: 1= 1-2x During Session Anxiety or Irritability: 1=Feels Anxious/Irritable Goose Flesh Skin: 0=Smooth Skin COWS Score: 14 [facility] Progress Note (SOAP) Subjective: SLIGHT ANXIETY,SWEATS,TREMORS. Objective: 03/26/17 12:07 Vital Signs Temperature 97.1 F L 03/26/17 09:40 Pulse Rate 75 03/26/17 09:40 Respiratory Rate 18 03/26/17 09:40 Blood Pressure 125/75 03/26/17 09:40 O2 Sat by Pulse Oximetry (%) Laboratory Last Values WBC 8.7 K/mm3 (4.0-10.0) 03/23/17 07:30 RBC 4.46 M/mm3 (4.00-5.60) 03/23/17 07:30 Hgb 14.1 GM/dL (11.7-16.9) 03/23/17 07:30 Hct 41.5 % (35.4-49) 03/23/17 07:30 MCV 93.1 fl (80-96) 03/23/17 07:30 MCH 31.7 pg (25.7-33.7) 03/23/17 07:30 MCHC 34.0 g/dl (32.0-35.9) 03/23/17 07:30 RDW 13.7 % (11.9-15.9) 03/23/17 07:30 Plt Count 234 K/MM3 (134-434) 03/23/17 07:30 MPV 9.2 fl (7.5-11.1) 03/23/17 07:30 Sodium 139 mmol/L (136-145) 03/23/17 07:30 Potassium 4.1 mmol/L (3.5-5.1) 03/23/17 07:30 Chloride 103 mmol/L (98-107) 03/23/17 07:30 Carbon Dioxide 30 mmol/L (21-32) 03/23/17 07:30 Anion Gap 6 (8-16) L 03/23/17 07:30 BUN 11 mg/dL (7-18) 03/23/17 07:30 Creatinine 0.8 mg/dL (0.7-1.3) 03/23/17 07:30 Creat Clearance w eGFR > 60 (>60) 03/23/17 07:30 Random Glucose 94 mg/dL (74-106) 03/23/17 07:30 Calcium 8.9 mg/dL (8.5-10.1) 03/23/17 07:30 Total Bilirubin 0.6 mg/dL (0.2-1.0) D 03/23/17 07:30 AST 33 U/L (15-37) D 03/23/17 07:30 ALT 42 U/L (12-78) D 03/23/17 07:30 Alkaline Phosphatase 50 U/L (45-117) D 03/23/17 07:30 Total Protein 6.6 g/dl (6.4-8.2) 03/23/17 07:30 Albumin 3.3 g/dl (3.4-5.0) L 03/23/17 07:30 Urine Color L[place] 03/24/17 18:52 Urine Appearance Clear 03/24/17 18:52 Urine pH 5.0 (5.0-8.0) 03/24/17 18:52 Ur Specific [place] 1.025 (1.005-1.025) 03/24/17 18:52 Urine Protein Negative (NEGATIVE) 03/24/17 18:52 Urine Glucose (UA) Negative (NEGATIVE) 03/24/17 18:52 Urine Ketones Negative (NEGATIVE) 03/24/17 18:52 Urine Blood Negative (NEGATIVE) 03/24/17 18:52 Urine Nitrite Negative (NEGATIVE) 03/24/17 18:52 Urine Bilirubin Negative (NEGATIVE) 03/24/17 18:52 Urine Urobilinogen Negative mg/dL (0.2-1.0) 03/24/17 18:52 Ur Leukocyte Esterase Trace (NEGATIVE) 03/24/17 18:52 Urine RBC 1 /hpf (0-3) 03/24/17 18:52 Urine WBC 3 /hpf (3-5) 03/24/17 18:52 Ur Epithelial Cells Rare /hpf (FEW) 03/24/17 18:52 Calcium Oxalate Crystal Moderate /hpf (NONE SEEN) 03/22/17 16:15 Urine Mucus Rare 03/24/17 18:52 RPR Titer Nonreactive (NONREACTIVE) 03/23/17 07:30 LABS/UA NOTED Assessment: 03/26/17 12:07 WITHDRWAL SX Plan: CONTINUE DETOX
[2017-03-26 17:08] LABS: URINE APPEARANCE CLEAR; URINE BILIRUBIN NEGATIVE (NEGATIVE); URINE BLOOD NEGATIVE (NEGATIVE); URINE COLOR DKYELLOW; URINE GLUCOSE (UA) 1+ (NEGATIVE); URINE KETONE NEGATIVE (NEGATIVE); URINE LEUK ESTERASE NEGATIVE (NEGATIVE); URINE NITRITE NEGATIVE (NEGATIVE); URINE PROTEIN NEGATIVE (NEGATIVE); URINE UROBILINOGEN NEGATIVE mg/dL (0.2-1.0)
[2017-03-26] MEDS: diphenhydrAMINE HCL 50 MG CAPSULE PO PRN (22:22)
[2017-03-26] MEDS: THIAMINE HCL 100 MG TABLET (FP) PO SCH (22:22)
[2017-03-27] MEDS ORDERED: METHADONE HCL 5 MG TABLET (FOR DETOX USE ONLY) PO SCH (06:00)
[2017-03-27 06:32] VITALS: BP 118/69; PULSE 51; TEMP 97
[2017-03-27] MEDS: cloNIDine HCL 0.1 MG TABLET PO SCH (10:19)
[2017-03-27] MEDS: NICOTINE 14 MG/24 HOURS TOPICAL PATCH TD SCH (10:20)
[2017-03-27] MEDS: LISINOPRIL 10 MG TABLET (FP) PO SCH (10:20)
[2017-03-27] MEDS: PRENATAL VITAMINS W/ FOLIC ACID TABLET (FP) PO SCH (10:20)
--- NOTE | 2017-03-27 13:40 | DS ---
[facility] Detox Discharge Summary Admission Date: 03/22/17 Discharge Date: 03/27/17 - History Present History: Alcohol Dependence, Cocaine Dependence, Opioid Dependence Additional Comments: DETOX COMPLETED. ALERT O X 3. NAD. PT INSTRUCTED TO F/U WITH PCP DR. MOCK AT [address] Pertinent Past History: ASTHMA HYPERTENSION HEP C - Physical Exam Results Vital Signs: Vital Signs Temperature 97 F L 03/27/17 06:32 Pulse Rate 51 L 03/27/17 06:32 Respiratory Rate 18 03/27/17 06:32 Blood Pressure 118/69 03/27/17 06:32 O2 Sat by Pulse Oximetry (%) Pertinent Admission Physical Exam Findings: WITHDRAWAL SX Laboratory Last Values WBC 8.7 K/mm3 (4.0-10.0) 03/23/17 07:30 RBC 4.46 M/mm3 (4.00-5.60) 03/23/17 07:30 Hgb 14.1 GM/dL (11.7-16.9) 03/23/17 07:30 Hct 41.5 % (35.4-49) 03/23/17 07:30 MCV 93.1 fl (80-96) 03/23/17 07:30 MCH 31.7 pg (25.7-33.7) 03/23/17 07:30 MCHC 34.0 g/dl (32.0-35.9) 03/23/17 07:30 RDW 13.7 % (11.9-15.9) 03/23/17 07:30 Plt Count 234 K/MM3 (134-434) 03/23/17 07:30 MPV 9.2 fl (7.5-11.1) 03/23/17 07:30 Sodium 139 mmol/L (136-145) 03/23/17 07:30 Potassium 4.1 mmol/L (3.5-5.1) 03/23/17 07:30 Chloride 103 mmol/L (98-107) 03/23/17 07:30 Carbon Dioxide 30 mmol/L (21-32) 03/23/17 07:30 Anion Gap 6 (8-16) L 03/23/17 07:30 BUN 11 mg/dL (7-18) 03/23/17 07:30 Creatinine 0.8 mg/dL (0.7-1.3) 03/23/17 07:30 Creat Clearance w eGFR > 60 (>60) 03/23/17 07:30 Random Glucose 94 mg/dL (74-106) 03/23/17 07:30 Calcium 8.9 mg/dL (8.5-10.1) 03/23/17 07:30 Total Bilirubin 0.6 mg/dL (0.2-1.0) D 03/23/17 07:30 AST 33 U/L (15-37) D 03/23/17 07:30 ALT 42 U/L (12-78) D 03/23/17 07:30 Alkaline Phosphatase 50 U/L (45-117) D 03/23/17 07:30 Total Protein 6.6 g/dl (6.4-8.2) 03/23/17 07:30 Albumin 3.3 g/dl (3.4-5.0) L 03/23/17 07:30 Urine Color [place] 03/26/17 16:00 Urine Appearance Clear 03/26/17 16:00 Urine pH 5.0 (5.0-8.0) 03/26/17 16:00 Ur Specific [place] 1.020 (1.005-1.025) 03/26/17 16:00 Urine Protein Negative (NEGATIVE) 03/26/17 16:00 Urine Glucose (UA) 1+ (NEGATIVE) H 03/26/17 16:00 Urine Ketones Negative (NEGATIVE) 03/26/17 16:00 Urine Blood Negative (NEGATIVE) 03/26/17 16:00 Urine Nitrite Negative (NEGATIVE) 03/26/17 16:00 Urine Bilirubin Negative (NEGATIVE) 03/26/17 16:00 Urine Urobilinogen Negative mg/dL (0.2-1.0) 03/26/17 16:00 Ur Leukocyte Esterase Negative (NEGATIVE) 03/26/17 16:00 Urine RBC 1 /hpf (0-3) 03/24/17 18:52 Urine WBC 3 /hpf (3-5) 03/24/17 18:52 Ur Epithelial Cells Rare /hpf (FEW) 03/24/17 18:52 Calcium Oxalate Crystal Moderate /hpf (NONE SEEN) 03/22/17 16:15 Urine Mucus Rare 03/24/17 18:52 RPR Titer Nonreactive (NONREACTIVE) 03/23/17 07:30 - Treatment Hospital Course: Detox Protocol Followed, Detoxed Safely, Responded well, Discharged Condition Good, Rehab Referral Accepted Patient has Accepted a Rehab Referral to: [facility] - Medication Discharge Medications: Ambulatory Orders Lisinopril [Prinivil] 10 mg PO DAILY #30 tablet 07/18/16 Naproxen [Naprosyn -] 500 mg PO BID PRN 11/05/16 - Diagnosis (1) Alcohol dependence with uncomplicated withdrawal Status: Acute (2) Opioid dependence with withdrawal Status: Acute (3) Hepatitis C Status: Chronic Qualifiers: Viral hepatitis chronicity: chronic Hepatic coma status: without hepatic coma Qualified Code(s): B18.2 - Chronic viral hepatitis C (4) History of asthma Status: Chronic (5) Hypertension Status: Chronic Qualifiers: Hypertension type: essential hypertension Qualified Code(s): I10 - Essential (primary) hypertension (6) Nicotine dependence Status: Chronic Qualifiers: Nicotine product type: cigarettes Substance use status: in withdrawal Qualified Code(s): F17.213 - Nicotine dependence, cigarettes, with withdrawal (7) Weight loss Status: Acute (8) Cocaine dependence Status: Acute Qualifiers: Substance use status: uncomplicated Qualified Code(s): F14.20 - Cocaine dependence, uncomplicated - AMA Did Patient Leave Against Medical Advice: No
== END 2017-03-27 08:45 | disposition home or self-care (01) | DRG 773 ==
LOC: YASAS 10:20 → Y3N 16:09
PROVIDERS: ADMIT Internal Medicine Addiction Medicine; ATTEND Internal Medicine Addiction Medicine
PROC: HZ2ZZZZ Detoxification Services for Substance Abuse Treatment (ICD-10-PCS; principal; 2017-03-22)
DX: F11.23 Opioid dependence with withdrawal (principal); F10.230 Alcohol dependence with withdrawal, uncomplicated; F14.20 Cocaine dependence, uncomplicated; F17.213 Nicotine dependence, cigarettes, with withdrawal; B18.2 Chronic viral hepatitis C; J45.909 Unspecified asthma, uncomplicated; I10 Essential (primary) hypertension; Z87.898 Personal history of other specified conditions
CPT/HCPCS: 36415; 80053; 81003; 81015; 85027; 86593; 93005; 93010